=== PATIENT | male | born 1965 | race Caucasian/White ===

== ENCOUNTER 2016-12-23 12:09 | Day surgery (SDC) | payer BC ==
[2016-12-18 11:32] VITALS: BMI 31.2
[~2016-12-23 12:09] MED LIST: LACTATED RINGERS 1,000 ML IV SCH; LIDOCAINE 1% 20 ML VIAL (10MG/ML) FOR IV START INTRADERMA PRN
[2016-12-23 12:22] VITALS: TEMP 98.1
[2016-12-23] MEDS ORDERED: LACTATED RINGERS 1,000 ML IV ONE (12:32)
[2016-12-23] MEDS ORDERED: PROPOFOL 10 MG/ML 20 ML VIAL IV ONE (13:22)
--- NOTE | 2016-12-23 13:24 | P.GSHP ---
History of Present Illness H&P Date: 12/23/16 Chief Complaint: Screening colonoscopy This is a 51-year-old male referred from Dr. Hortencia abebe. Patient presents today for screening colonoscopy. Past Medical History Past Medical History: Hyperlipidemia, Hypertension Additional Past Medical History / Comment(s): chronic back pain, rt inguinal hernia, umbilical hernia, non alcoholic fatty liver History of Any Multi-Drug Resistant Organisms: None Reported Additional Past Surgical History / Comment(s): lymph node removed Past Anesthesia/Blood Transfusion Reactions: No Reported Reaction Past Psychological History: No Psychological Hx Reported Smoking Status: Never smoker Past Alcohol Use History: None Reported Past Drug Use History: None Reported - Past Family History Mother Family Medical History: No Reported History Medications and Allergies Home Medications Medication Instructions Recorded Confirmed Type Atorvastatin [Lipitor] 20 mg PO HS 12/18/16 12/23/16 History Lisinopril [Zestril] 10 mg PO DAILY 12/18/16 12/23/16 History Allergies Allergy/AdvReac Type Severity Reaction Status Date / Time No Known Allergies Allergy Verified 12/18/16 11:15 Surgical - Exam Vital Signs Temp Pulse Resp BP Pulse Ox 98.1 F 72 18 127/78 98 12/23/16 12:21 12/23/16 12:21 12/23/16 12:21 12/23/16 12:21 12/23/16 12:21 - General well developed, no distress - Eyes PERRL - ENT normal pinna - Neck no masses - Respiratory normal expansion - Cardiovascular Rhythm: regular - Abdomen Abdomen: soft, non tender Assessment and Plan Plan: We will perform screening colonoscopy
--- NOTE | 2016-12-23 13:39 | P.OP ---
Date of Procedure: 12/23/16 Preoperative Diagnosis: Screening colonoscopy Postoperative Diagnosis: Normal colonoscopy Procedure(s) Performed: Colonoscopy Anesthesia: MAC Surgeon: Usama Mcgee Pathology: none sent Condition: stable Disposition: PACU Description of Procedure: PROCEDURE: The patient was placed on the endoscopy table in the lateral position. Digital rectal examination was performed which revealed no abnormalities. The prostate was symmetrical without nodules. Flexible colonoscope was then placed in the patient's anus and passed throughout the entire colon. The ileocecal valve was visualized. The cecum, ascending, transverse, descending and sigmoid colon were normal. The rectum was normal as well. There were no masses, polyps or diverticula noted in the entire colon. SUMMARY OF FINDINGS: Normal colonoscopy.
[2016-12-23 13:47] VITALS: RESP 16
[2016-12-23 14:22] VITALS: BP 103/76; PULSE 64
== END 2016-12-23 14:40 | disposition home or self-care (01) ==
LOC: ORWHC2ENDO 12:09
PROVIDERS: ATTEND Surgery
DX: Z12.11 Encounter for screening for malignant neoplasm of colon (principal); E78.5 Hyperlipidemia, unspecified; I10 Essential (primary) hypertension; Z79.899 Other long term (current) drug therapy
CPT/HCPCS: J2704; G0121; 45378

== ENCOUNTER 2017-01-06 06:25 | Day surgery (SDC) | payer BC ==
[2017-01-04 15:23] VITALS: BMI 30.8
[~2017-01-06 06:25] MED LIST changes: +DEXAMETHASONE SOD PHOSPHATE 10 MG/ML 1 ML VIAL IV ONE; +HEPARIN SODIUM,PORCINE 5,000 UNIT/ML 1 ML VIAL SQ ONE; +HYDROmorphone 1 MG/ML 1 ML SYRINGE IVP PRN; -LACTATED RINGERS 1,000 ML IV SCH; -LIDOCAINE 1% 20 ML VIAL (10MG/ML) FOR IV START INTRADERMA PRN; +MIDAZOLAM 2 MG/2 ML VIAL IV PRN; +ONDANSETRON 4 MG/2 ML VIAL IVP ONE; +SCOPOLAMINE 1.5MG/72HR PATCH TRANSDERM ONE; +ceFAZolin 2 GM in SODIUM CHLORIDE 0.9% 100 ML IVPB ONE
[2017-01-06] MEDS: LACTATED RINGERS 1,000 ML IV SCH (06:54)
[2017-01-06] MEDS ORDERED: LIDOCAINE 1% 20 ML VIAL (10MG/ML) FOR IV START INTRADERMA ONE ×2 (06:55)
[2017-01-06] MEDS ORDERED: BUPIVACAIN-EPI 0.25%-1:200,000 30 ML VIAL SQ ONE (07:27)
--- NOTE | 2017-01-06 07:52 | P.GSHP ---
History of Present Illness H&P Date: 01/06/17 Chief Complaint: Umbilical hernia, right inguinal hernia This a 51-year-old male presents today for laparoscopic robotic-assisted repair of umbilical hernia and right inguinal hernia. Patient's had some complaints of right angle pain. - Constitutional Constitutional: Reports as per HPI Past Medical History Past Medical History: Hyperlipidemia, Hypertension Additional Past Medical History / Comment(s): chronic back pain, rt inguinal hernia, umbilical hernia, non alcoholic fatty liver History of Any Multi-Drug Resistant Organisms: None Reported Additional Past Surgical History / Comment(s): lymph node removed, colonoscopy Past Anesthesia/Blood Transfusion Reactions: No Reported Reaction Past Psychological History: No Psychological Hx Reported Smoking Status: Never smoker Past Alcohol Use History: None Reported Past Drug Use History: None Reported - Past Family History Mother Family Medical History: No Reported History Medications and Allergies Home Medications Medication Instructions Recorded Confirmed Type Atorvastatin [Lipitor] 20 mg PO HS 12/18/16 01/06/17 History Lisinopril [Zestril] 10 mg PO DAILY 12/18/16 01/06/17 History Allergies Allergy/AdvReac Type Severity Reaction Status Date / Time No Known Allergies Allergy Verified 01/06/17 06:39 Surgical - Exam Vital Signs Temp Pulse Resp BP Pulse Ox 98.5 F 82 16 120/79 95 01/06/17 06:37 01/06/17 06:37 01/06/17 06:37 01/06/17 06:37 01/06/17 06:37 - General well developed, no distress - Eyes PERRL - ENT normal pinna - Neck no masses - Respiratory normal expansion - Cardiovascular Rhythm: regular - Abdomen Abdomen: soft, non tender Hernia: inguinal (Reducible right inguinal hernia), umbilical Assessment and Plan Plan: Umbilical hernia Right inguinal hernia We'll perform laparoscopic robotic-assisted repair
[2017-01-06] MEDS ORDERED: NEOSTIGMINE 1 MG/ML 10 ML VIAL ONE (08:01)
[2017-01-06] MEDS ORDERED: PROPOFOL 10 MG/ML 20 ML VIAL IV ONE (08:01)
[2017-01-06] MEDS ORDERED: HYDROmorphone (PF) 1 MG/ML ONE (08:01)
[2017-01-06] MEDS ORDERED: ePHEDrine 50 MG/ML 1 ML AMP ONE (08:01)
[2017-01-06] MEDS ORDERED: SUCCINYLCHOLINE CHLORIDE 100 MG/5 ML SYR IV ONE (08:01)
[2017-01-06] MEDS ORDERED: ROCURONIUM BROMIDE 10 MG/ML 10 ML VIAL IV ONE (08:01)
[2017-01-06] MEDS ORDERED: LIDOCAINE 1% INJ 10MG/ML (20 ML MDV) ONE (08:01)
[2017-01-06] MEDS ORDERED: KETOROLAC 30 MG/ML 1 ML VIAL ONE (08:01)
[2017-01-06] MEDS ORDERED: fentaNYL (PF) 50 MCG/ML 2 ML AMP ONE (08:01)
[2017-01-06] MEDS ORDERED: MIDAZOLAM 2 MG/2 ML VIAL ONE (08:01)
[2017-01-06] MEDS ORDERED: GLYCOPYRROLATE 0.2 MG/ML 2 ML VIAL ONE (08:01)
--- NOTE | 2017-01-06 09:05 | P.OP ---
Date of Procedure: 01/06/17 Preoperative Diagnosis: Right internal hernia Incarcerated umbilical hernia Postoperative Diagnosis: Right inguinal hernia Incarcerated umbilical hernia Procedure(s) Performed: Laparoscopic robotic-assisted repair of right inguinal hernia and incarcerated umbilical hernia Anesthesia: EDWINA Surgeon: Usama Mcgee Estimated Blood Loss (ml): 5 Pathology: other (Incarcerated umbilical fat) Condition: stable Disposition: PACU Description of Procedure: The patient's placed on the operating table in the supine position. The patient received general anesthesia. The patient's abdomen was prepped and draped in usual sterile fashion. The skin was anesthetized 1% local Xylocaine at the incision sites. Using an 11 blade a skin incision was made at the umbilicus. The fascia was grasped with a Real and then the peritoneal cavity was entered with the Veress needle. Position of the Veress needle was confirmed with a positive drop test. After adequate insufflation a 5 mm trocar was placed into the peritoneal cavity. The Laparoscope was placed the peritoneal cavity. And a robotic 8 mm trocar was placed in the right lateral position and then another 8 mm robotic trochars placed in the left lateral position. The original 5 mm trocar was exchanged for a 12 mm trocar. The patient was placed in reverse Trendelenburg and then the patient was docked to the robot. Next the peritoneum over top of the hernia was incised and then using blunt and sharp dissection and electrocautery the hernia sac was dissected free from the floor of the inguinal canal. The hernia sac was completely reduced into the peritoneal cavity. And then using the Pro tube depatcher mesh the hernia was repaired. The peritoneum was then sutured with 20V lock suture. The patient was then undocked the robot. The needle was withdrawn from the peritoneal cavity. The umbilical umbilical site was closed with 0 Ethibond suture. There was incarcerated fat in the umbilical hernia which was removed. The skin was closed interrupted 3-0 Monocryl suture. Dermabond dressing was applied. Patient was sent to recovery in stable condition.
[2017-01-06 09:24] VITALS: TEMP 97.2
[2017-01-06] MEDS ORDERED: HYDROcodone/APAP 7.5-325MG 1 EACH TAB PO ONE (10:30)
[2017-01-06 10:45] VITALS: RESP 18
[2017-01-06 11:19] VITALS: BP 125/81; PULSE 82
== END 2017-01-06 11:58 | disposition home or self-care (01) ==
LOC: OR 06:25
PROVIDERS: ATTEND Surgery
DX: K42.0 Umbilical hernia with obstruction, without gangrene (principal); K40.30 Unilateral inguinal hernia, with obstruction, without gangrene, not specified as recurrent; E78.5 Hyperlipidemia, unspecified; G89.29 Other chronic pain; I10 Essential (primary) hypertension; K76.0 Fatty (change of) liver, not elsewhere classified; Z79.899 Other long term (current) drug therapy
CPT/HCPCS: 88305; 88302; 49653; 49650; C1781; J2250; J1644; J1100; J2710; J0690; J2405; J2001; J3010; J1885; J1170; J0330; J2704

== ENCOUNTER → 2018-07-08 | Outpatient (CLI) | payer BC ==
--- NOTE | 2018-07-10 09:43 | MR ---
MRI CERVICAL SPINE: CLINICAL HISTORY: Radiculopathy left upper extremity and cervicalgia per order. Headaches with neck p ain and stiffness for many years causing pain or weakness into left arm per patient. TECHNIQUE: Multiplanar, multisequence imaging of the cervical spine is performed without IV contrast. COMPARISON: None. FINDINGS: Sagittal images of the cervical spine show the craniocervical junction to appear within nor mal limits. The cervical and upper thoracic spinal cord is normal in course, caliber, and signal. V ertebral alignment is anatomic. The vertebral body heights are normal. There is mild disc space heath rowing C4-C5 and C5-C6 levels. No large posterior disc herniations are seen on sagittal images. The b one marrow signal intensity is within normal limits. Axial images show C2-C3 level to appear within normal limits. Axial images at C3-C4 level show right greater than left uncovertebral facet degenerative changes. Th ere is right paracentral/foraminal spur disc complex minimally effacing anterolateral thecal sac. The re is asymmetric increased moderate right-sided neural foraminal narrowing. Mild left-sided neural fo raminal narrowing is noted. Axial images at C4-C5 level show uncovertebral facet degenerative changes bilaterally with mild bilat eral neural foraminal narrowing. Axial images at C5-C6 level show broad-based central disc protrusion mildly effacing anterior thecal sac and causing mild right greater than left bilateral neural foraminal narrowing. Axial images at C6-C7 level shows central disc protrusion mildly effacing anterior thecal sac, bilate ral neural foramina are patent. Axial images at C7-T1 level are felt within normal limits. IMPRESSION: Some multilevel degenerative changes in the cervical spine as detailed above.
== END | disposition home or self-care (01) ==
LOC: RADMRIMAIN 16:58
PROVIDERS: ATTEND Family Medicine
DX: M47.22 Other spondylosis with radiculopathy, cervical region (principal)
CPT/HCPCS: 72141

== ENCOUNTER → 2019-01-03 | Outpatient (CLI) | payer BC ==
--- NOTE | 2019-02-14 23:02 | EM ---
EVENT MONITOR AGE:: 53 SEX:: Male INDICATIONS:: The patient was monitored for 30 days. The baseline rhythm appeared to be sinus mechanism. During the time of monitoring, the patient did have multiple episodes of sinus tachycardia. The patient also did have multiple episodes of paroxysmal atrial tachycardia. Also, the patient did have 1 episode of nonsustained ventricular tachycardia of 7 beats. Beside that, there was no evidence of any advanced AV block. There is no evidence of sinus pause or sinus arrest seen. CONCLUSION: 1. This is a 30 day event monitor. 2. The baseline rhythm is a sinus mechanism. 3. The patient did have multiple episodes of paroxysmal atrial tachycardia. 4. The patient did have multiple episodes of sinus tachycardia. 5. The patient did have 1 episode of ventricular tachycardia of 7 beats which is nonsustained. MMODL / IJN: [id number] /
== END | disposition home or self-care (01) ==
LOC: RADECHMAIN 11:44
PROVIDERS: ATTEND Family Medicine
DX: I47.2 Ventricular tachycardia (principal); I47.1 Supraventricular tachycardia
CPT/HCPCS: 93270

== ENCOUNTER → 2019-03-27 | Day surgery (SDC) | payer BC ==
[2019-03-23 11:06] VITALS: BMI 30.8
[~2019-03-27] MED LIST changes: -DEXAMETHASONE SOD PHOSPHATE 10 MG/ML 1 ML VIAL IV ONE; -HEPARIN SODIUM,PORCINE 5,000 UNIT/ML 1 ML VIAL SQ ONE; -HYDROmorphone 1 MG/ML 1 ML SYRINGE IVP PRN; -MIDAZOLAM 2 MG/2 ML VIAL IV PRN; -ONDANSETRON 4 MG/2 ML VIAL IVP ONE; -SCOPOLAMINE 1.5MG/72HR PATCH TRANSDERM ONE; +SODIUM CHLORIDE 0.9% 1,000 ML IV SCH; -ceFAZolin 2 GM in SODIUM CHLORIDE 0.9% 100 ML IVPB ONE
[2019-03-27 08:16] VITALS: BP 141/77; PULSE 59; RESP 18; TEMP 98
--- NOTE | 2019-03-27 11:27 | P.PCN ---
Preoperative Diagnosis: Diagnosis Syncope Twelve-lead ECG Sinus rhythm OK interval at the upper limits of normal at 200 ms narrow QRS [address] elevation inferior lateral consistent with early repolarization Tilt table test per protocol Baseline blood pressure 132/76. His mercury, pulse rate in the 50s Patient was tilted upright at an angle of 70 per protocol No significant change in heart her blood pressure placed upon noninvasive Blood pressure readings, ClearSite He is laid supine at the end of the procedure Patient completely asymptomatic Impression Normal heart rate and blood pressure response to upright tilting Normal 20 to ECG
== END ==
LOC: CATHEP 07:46
PROVIDERS: ATTEND Internal Medicine Clinical Cardiac Electrophysiology
DX: R55 Syncope and collapse (principal); I10 Essential (primary) hypertension; E78.5 Hyperlipidemia, unspecified; Z79.899 Other long term (current) drug therapy
CPT/HCPCS: 93660

== ENCOUNTER 2019-03-30 07:37 | Day surgery (SDC) | payer BC ==
[2019-03-23 11:56] VITALS: BMI 30.8
[~2019-03-30 07:37] MED LIST changes: +LACTATED RINGERS 1,000 ML IV SCH; +LIDOCAINE 1% 20 ML VIAL (10MG/ML) FOR IV START INTRADERMA PRN; -SODIUM CHLORIDE 0.9% 1,000 ML IV SCH
[2019-03-30 08:00] VITALS: TEMP 98
--- NOTE | 2019-03-30 08:34 | P.GSHP ---
History of Present Illness H&P Date: 03/30/19 Chief Complaint: GERD This a 54-year-old male who presents today for EGD. He's had issues with GERD and dysphagia. Past Medical History Past Medical History: GERD/Reflux, Hyperlipidemia, Hypertension, Osteoarthritis (OA), Syncope Additional Past Medical History / Comment(s): chronic back pain, non alcoholic fatty liver, sporadic episodes of passing out since age of 13 per pt., recent problems w/heartburn History of Any Multi-Drug Resistant Organisms: None Reported Past Surgical History: Hernia Repair Additional Past Surgical History / Comment(s): lymph node removed, colonoscopy, ventral hernia repaired Past Anesthesia/Blood Transfusion Reactions: No Reported Reaction Smoking Status: Never smoker - Past Family History Mother Family Medical History: No Reported History Medications and Allergies Home Medications Medication Instructions Recorded Confirmed Type Atorvastatin [Lipitor] 20 mg PO HS 12/18/16 03/27/19 History Lisinopril [Zestril] 10 mg PO DAILY 12/18/16 03/27/19 History Ibuprofen [Motrin Ib] 200 - 400 mg PO Q6H PRN 03/23/19 03/30/19 History Loratadine [Claritin] 10 mg PO DAILY 03/23/19 03/27/19 History Pantoprazole Sodium [Protonix] 40 mg PO DAILY 03/23/19 03/27/19 History Sertraline [Zoloft] 50 mg PO DAILY 03/23/19 03/27/19 History Allergies Allergy/AdvReac Type Severity Reaction Status Date / Time No Known Allergies Allergy Verified 03/27/19 08:05 Surgical - Exam Vital Signs Temp Pulse Resp BP Pulse Ox 98.0 F 58 L 18 107/76 95 03/30/19 07:58 03/30/19 07:58 03/30/19 07:58 03/30/19 07:58 03/30/19 07:58 - General well developed, well nourished, no distress - Eyes PERRL - ENT normal pinna - Neck no masses - Respiratory normal expansion - Cardiovascular Rhythm: regular - Abdomen Abdomen: soft, non tender Assessment and Plan Assessment: GERD, dysphagia. We'll perform EGD
[2019-03-30] MEDS ORDERED: LIDOCAINE 1% INJ 10MG/ML (20 ML MDV) ONE (08:43)
[2019-03-30] MEDS ORDERED: PROPOFOL 10 MG/ML 20 ML VIAL IV ONE (08:43)
--- NOTE | 2019-03-30 08:57 | P.OP ---
Date of Procedure: 03/30/19 Preoperative Diagnosis: GERD Postoperative Diagnosis: Antral gastritis Small hiatal hernia Esophagitis Procedure(s) Performed: EGD Anesthesia: MAC Surgeon: Usama Mcgee Pathology: other (Antrum, esophagus) Condition: stable Disposition: PACU Description of Procedure: The patient's placed on the endoscopy table in the lateral position. He received IV sedation. The gastroscope placed oropharynx passed in the esophagus into the stomach. Scope was then placed through the pylorus. The first and se cond portion of the duodenum appeared normal. Scope was then brought back the antrum this above inflamed. A biopsies performed. The scope was then retroflexed and the remainder of the stomach appeared normal. The patient had a small hiatal hernia. The GE junction was at [id number] cm. The distal esophagus appeared mildly inflamed. A biopsies performed. There is evidence of a inflammatory ring. The proximal esophagus appeared normal. The scope was withdrawn for patient.
[2019-03-30 09:06] VITALS: RESP 16
[2019-03-30 09:23] VITALS: BP 111/74; PULSE 59
== END 2019-03-30 09:33 | disposition home or self-care (01) ==
LOC: ORWHC2ENDO 07:37
PROVIDERS: ATTEND Surgery
DX: K21.0 Gastro-esophageal reflux disease with esophagitis (principal); K29.70 Gastritis, unspecified, without bleeding; K44.9 Diaphragmatic hernia without obstruction or gangrene; M19.90 Unspecified osteoarthritis, unspecified site; R13.10 Dysphagia, unspecified; E78.5 Hyperlipidemia, unspecified; G89.29 Other chronic pain; I10 Essential (primary) hypertension; K76.0 Fatty (change of) liver, not elsewhere classified; Z79.899 Other long term (current) drug therapy
CPT/HCPCS: 88305; 43239; J2001; J2704

== ENCOUNTER 2021-01-21 09:23 | Day surgery (SDC) | payer BC ==
[2021-01-20 12:10] VITALS: BMI 33.0
[~2021-01-21 09:23] MED LIST changes: -LIDOCAINE 1% 20 ML VIAL (10MG/ML) FOR IV START INTRADERMA PRN
[2021-01-21 10:41] VITALS: TEMP 98.2
[2021-01-21] MEDS ORDERED: LIDOCAINE 1% (10MG/ML) FOR IV START INTRADERMA ONE (10:53)
[2021-01-21] MEDS ORDERED: PROPOFOL 10 MG/ML 20 ML VIAL IV ONE (11:28)
[2021-01-21] MEDS ORDERED: LIDOCAINE 1% INJ 10MG/ML (20 ML MDV) ONE (11:28)
--- NOTE | 2021-01-21 11:47 | P.PCN ---
Date of Procedure: 01/21/21 Description of Procedure: BRIEF HISTORY: Patient is a 55-year-old male seen in the clinic reporting issues of globus and heartburn, he presents for outpatient EGD for evaluation of GERD. The patient previously said EGD and 2019 with findings of small hiatal hernia and biopsies consistent with reflux esophagitis. He has been started on Protonix therapy with some improvement in his symptoms. PROCEDURE PERFORMED: Esophagogastroduodenoscopy with biopsy. PREOPERATIVE DIAGNOSIS: [GERD with esophagitis. ESTIMATED BLOOD LOSS: Minimal. IV sedation per anesthesia. PROCEDURE: After informed consent was obtained, the patient was brought into the endoscopy unit. IV sedation was administered by Anesthesia under continuous monitoring. Initially the Olympus GIF-190 video endoscope was inserted into the mouth. Esophagus intubated without any difficulty. It was gradually advanced into the s tomach and duodenum and carefully examined. The bulb and the second part of the duodenum appeared normal, with biopsies taken. The scope at this time was withdrawn to the stomach, adequately insufflated with air, and upon careful examination, mucosa of the antrum, body, cardia and the fundus appeared normal, except for some mild scattered erythema in the antrum and body suggestive of mild gastritis biopsy was taken. The scope was then withdrawn into the esophagus. The GE junction was located at 40 cm from the incisors, with a small 1 cm hiatal hernia. The esophagus appeared normal except for a patchy area in the midesophagus 25 cm from the incisors consistent with LA grade a esophagitis which was biopsied. The lower esophagus was also biopsied. The esophagus appeared normal. There were no erosions or ulcerations seen and the patient tolerated the procedure well. IMPRESSION: 1. LA grade a esophagitis of the midesophagus . 2. Mild gastritis. 3. Biopsies of the duodenum, antrum and body, lower esophagus and mid esophagus.. RECOMMENDATIONS: The findings of this examination were discussed with the patient and his family. Okay to resume diet. Okay to resume medications. Continue Protonix therapy for now. Await pathology from biopsies. Follow up with GI clinic as scheduled.
[2021-01-21 12:07] VITALS: BP 99/59; PULSE 76; RESP 20
== END 2021-01-21 12:17 | disposition home or self-care (01) ==
LOC: ORWHC2ENDO 09:23
PROVIDERS: ATTEND Internal Medicine
DX: K21.00 Gastro-esophageal reflux disease with esophagitis, without bleeding (principal); K29.50 Unspecified chronic gastritis without bleeding; K44.9 Diaphragmatic hernia without obstruction or gangrene; E78.5 Hyperlipidemia, unspecified; F32.9 Major depressive disorder, single episode, unspecified; G47.33 Obstructive sleep apnea (adult) (pediatric); Z79.899 Other long term (current) drug therapy
CPT/HCPCS: 88305; 43239; J2001; J2704

== ENCOUNTER → 2021-02-04 | Outpatient (CLI) | payer BC ==
[2021-02-04 19:32] LABS: HGB 13.9 g/dL (13.0-17.0); MCH 30.2 pg (27.0-32.0); MCHC 32.3 g/dL (32.0-37.0); MCV 93.5 fL (80.0-97.0); Mean Platelet Volume 9.6 fL (9.5-12.2); Platelet Count 277 X 10*3/uL (140-440); WBC 5.51 X 10*3/uL (4.50-10.00)
[2021-02-04 23:38] LABS: Hemoglobin A1C 5.9 % (4.0-6.0)
[2021-02-05 00:25] LABS: African American GFR (CKD) 111.8 (60.0-200.0); Albumin 4.4 g/dL (3.80-4.90); Albumin/Globulin Ratio 1.76 (1.60-3.17); Anion Gap 13.4 mmol/L (4.00-12.00); BUN/Creat Ratio 12.22 Ratio (12.00-20.00); Calcium 9.3 mg/dL (8.7-10.3); Carbon Dioxide 21.6 mmol/L (21.6-31.8); Chol/HDL Ratio 8.08; Globulin 2.5 g/dL (1.6-3.3); LDL Cholesterol,Calculated 216.2 mg/dL (0.0-131.0); Non-African American GFR(CKD) 96.5 (60.0-200.0); Potassium 4.5 mmol/L (3.5-5.5); Prostate Specific Antigen 0.9 ng/mL (0.0-3.5); Total Bilirubin 0.3 mg/dL (0.2-1.2); Total Protein 6.9 g/dL (6.2-8.2); VLDL Calculation 38.8 mg/dL (5.00-40.00)
== END | disposition home or self-care (01) ==
LOC: LABWHC1 11:33
PROVIDERS: ATTEND Physician Assistant
DX: Z12.5 Encounter for screening for malignant neoplasm of prostate (principal); I10 Essential (primary) hypertension; E78.5 Hyperlipidemia, unspecified; R73.02 Impaired glucose tolerance (oral)
CPT/HCPCS: 36415; 80053; 80061; 83036; 84153; 84443; 85027

== ENCOUNTER 2023-07-26 08:30 | Emergency (ER) | payer BC ==
--- NOTE | 2023-07-26 09:06 | ED ---
Back Pain HPI - General Chief Complaint: Back Pain/Injury Stated Complaint: Back Pain Time Seen by Provider: 07/26/23 08:43 Source: patient, RN notes reviewed Mode of arrival: ambulatory Limitations: no limitations - History of Present Illness Initial Comments: 58-year-old male presents emergency Department with chief complaint of low back pain. He states she's been suffering with Dr. Hernandez years but worse over the last few days he states occasionally he has issues with that that he needs to be seen for. He denies any bowel, bladder incontinence or retention or saddle anesthesias. He states that he is in the process of moving and was lifting a large amount of things including heavy objects this weekend that increases symptoms. Patient has no difficulty walking or focal weakness. - Related Data Home Medications Medication Instructions Recorded Confirmed Atorvastatin [Lipitor] 20 mg PO HS 12/18/16 01/21/21 lisinopriL [Zestril] 10 mg PO DAILY 12/18/16 01/21/21 Ibuprofen [Motrin Ib] 200 - 400 mg PO Q6H PRN 03/23/19 01/20/21 Loratadine [Claritin] 10 mg PO DAILY PRN 03/23/19 01/21/21 Pantoprazole Sodium [Protonix] 40 mg PO DAILY 03/23/19 01/20/21 Sertraline [Zoloft] 50 mg PO DAILY 03/23/19 01/20/21 Previous Rx's Medication Instructions Recorded Cyclobenzaprine [Flexeril] 10 mg PO TID PRN #15 tab 07/26/23 predniSONE 50 mg PO DAILY #5 tab 07/26/23 Allergies Allergy/AdvReac Type Severity Reaction Status Date / Time No Known Allergies Allergy Verified 07/26/23 08:40 Review of Systems ROS Statement: Those systems with pertinent positive or pertinent negative responses have been documented in the HPI. ROS Other: All systems not noted in ROS Statement are negative. Past Medical History Past Medical History: GERD/Reflux, Hyperlipidemia, Hypertension, Osteoarthritis (OA), Syncope Additional Past Medical History / Comment(s): chronic back pain, non alcoholic fatty liver, sporadic episodes of passing out since age of 13 per pt., HIATAL HERNIA History of Any Multi-Drug Resistant Organisms: None Reported Past Surgical History: Hernia Repair Additional Past Surgical History / Comment(s): lymph node removed, colonoscopy, ventral hernia repaired Past Anesthesia/Blood Transfusion Reactions: Motion Sickness Past Psychological History: Anxiety, Depression Smoking Status: Never smoker Past Alcohol Use History: None Reported Past Drug Use History: None Reported - Past Family History Mother Family Medical History: No Reported History General Exam Limitations: no limitations General appearance: alert, in no apparent distress Head exam: Present: atraumatic, normocephalic, normal inspection Eye exam: Present: normal appearance, PERRL, EOMI. Absent: scleral icterus, conjunctival injection, periorbital swelling Respiratory exam: Present: normal lung sounds bilaterally. Absent: respiratory distress, wheezes, rales, rhonchi, stridor Cardiovascular Exam: Present: regular rate, normal rhythm, normal heart sounds. Absent: systolic murmur, diastolic murmur, rubs, gallop, clicks GI/Abdominal exam: Present: soft, normal bowel sounds. Absent: distended, tenderness, guarding, rebound, rigid Extremities exam: Present: other (Lower extremity strength equal bilaterally equal color equal pulses) Back exam: Present: full ROM ( pain with range of motion), tenderness, paraspinal tenderness. Absent: vertebral tenderness Neurological exam: Present: reflexes normal. Absent: motor sensory deficit Skin exam: Present: warm, dry, intact, normal color. Absent: rash Course Vital Signs 07/26/23 07/26/23 08:38 11:04 Temperature 98.2 F 98.1 F Pulse Rate 67 70 Respiratory 20 18 Rate Blood Pressure 137/84 132/86 O2 Sat by Pulse 99 99 Oximetry Medical Decision Making - Medical Decision Making Was pt. sent in by a medical professional or institution (, PA, [employer], urgent care, hospital, or fpc...) When possible be specific @ -No Did you speak to anyone other than the patient for history (EMS, parent, family, police, friend...)? What history was obtained from this source @ -No Did you review nursing and triage notes (agree or disagree)? Why? @ -I reviewed and agree with nursing and triage notes Were old charts reviewed (outside hosp., previous admission, EMS record, old EKG, old radiological studies, urgent care reports/EKG's, fpc records)? Report findings @ -No old charts were reviewed Differential Diagnosis (chest pain, altered mental status, abdominal pain women, abdominal pain men, vaginal bleeding, weakness, fever, dyspnea, syncope, headache, dizziness, GI bleed, back pain, seizure, CVA, palpatations, mental health, musculoskeletal)? @ -Differential Back Pain: Strain, zoster, cauda equina syndrome, epidural abscess, vertebral osteomyelitis, discitis, fracture, subluxation, disc herniation, DJD, spinal stenosis, dissection, AAA, pancreatitis, peptic ulcer disease, pyelonephritis, kidney stone, this is not meant to be an all-inclusive list.ble EKG interpreted by me (3pts min.). @ -None X-rays interpreted by me (1pt min.). @ -X-ray shows severe degenerative changes L5-S1 CT interpreted by me (1pt min.). @ -None done U/S interpreted by me (1pt. min.). @ -None done What testing was considered but not performed or refused? (CT, X-rays, U/S, labs)? Why? @ -None What meds were considered but not given or refused? Why? @ -None Did you discuss the management of the patient with other professionals (professionals i.e. , PA, [employer], lab, RT, psych nurse, social science professor, heel molder, teacher, unclaimed property officer, behavioral health case manager)? Give summary @ -No Was smoking cessation discussed for >3mins.? @ -No Was critical care preformed (if so, how long)? @ -No Were there social determinants of health that impacted care today? How? (Homelessness, low income, unemployed, alcoholism, drug addiction, transportation, low edu. Level, literacy, decrease access to med. care, penitentiary, rehab)? @ -No Was there de-escalation of care discussed even if they declined (Discuss DNR or withdrawal of care, Hospice)? DNR status @ -No What co-morbidities impacted this encounter? (DM, HTN, Smoking, COPD, CAD, Cancer, CVA, ARF, Chemo, Hep., AIDS, mental health diagnosis, sleep apnea, morbid obesity)? @ -None Was patient admitted / discharged? Hospital course, mention meds given and route, prescriptions, significant lab abnormalities, going to OR and other pertinent info. @ -Discharge x-rays show degenerative changes patient has no red flag symptoms. Patient discharged in stable condition patient advised follow-up for MRI. Undiagnosed new problem with uncertain prognosis? @ -No Drug Therapy requiring intensive monitoring for toxicity (Heparin, Nitro, Insulin, Cardizem)? @ -No Were any procedures done? @ -No Diagnosis/symptom? @ -Lumbar degenerative changes, lumbar strain Acute, or Chronic, or Acute on Chronic? @ -Acute Uncomplicated (without systemic symptoms) or Complicated (systemic symptoms)? @ -Uncomplicated Side effects of treatment? @ -No Exacerbation, Progression, or Severe Exacerbation? @ -No Poses a threat to life or bodily function? How? (Chest pain, [place], [place], pneumonia, PE, COPD, DKA, ARF, appy, cholecystitis, CVA, Diverticulitis, Homicidal, Suicidal, threat to staff... and all critical care pts) @ -No Disposition Clinical Impression: Strain of lumbar region, Degeneration of intervertebral disc Disposition: HOME SELF-CARE Condition: Stable Instructions (If sedation given, give patient instructions): Acute Low Back Pain (ED) Additional Instructions: Please return to the Emergency Department if symptoms worsen or any other concerns. Prescriptions: Cyclobenzaprine [Flexeril] 10 mg PO TID PRN #15 tab PRN Reason: Muscle Spasm predniSONE 50 mg PO DAILY #5 tab Is patient prescribed a controlled substance at d/c from ED?: No Referrals: Catalina Zuñiga DO [Primary Care Provider] - 1-2 days Brandon Lara DO [Doctor of Osteopathic Medicine] - 1-2 days Time of Disposition: 10:15
--- NOTE | 2023-07-26 09:36 | XR ---
EXAM TYPE: LUMBAR SPINE X RAY SERIES COMPARISON: NONE HISTORY: Pain TECHNIQUE: 3 views are submitted. FINDINGS: Alignment is anatomic. The pedicles are intact. The transverse processes are intact. There is olivier re degenerative disc disease with facet throughout the L5-S1 atherosclerotic change aorta. Hypertroph ic spurring lower thoracic spine. IMPRESSION: 1. Severe degenerative disc disease, facet arthropathy L5-S1 with suspected foraminal encroachment. R ecommend MRI.
[2023-07-26] MEDS ORDERED: ACET/COD 300 MG/30 MG STARTER PACK 6 TAB BTL PO STA (10:14)
[2023-07-26 11:29] VITALS: BP 132/86; PULSE 70; RESP 18; TEMP 98.1
== END 2023-07-26 11:06 | disposition home or self-care (01) ==
LOC: EC 08:30
DX: S39.012A Strain of muscle, fascia and tendon of lower back, initial encounter (principal); M51.36 Other intervertebral disc degeneration, lumbar region; K21.9 Gastro-esophageal reflux disease without esophagitis; E78.5 Hyperlipidemia, unspecified; I10 Essential (primary) hypertension; M19.90 Unspecified osteoarthritis, unspecified site; F41.9 Anxiety disorder, unspecified; F32.A Depression, unspecified; Z79.1 Long term (current) use of non-steroidal anti-inflammatories (NSAID); Z79.899 Other long term (current) drug therapy; X50.0XXA Overexertion from strenuous movement or load, initial encounter
CPT/HCPCS: 72100; 99283

== ENCOUNTER → 2023-08-04 | Outpatient (CLI) | payer BC ==
--- NOTE | 2023-08-04 14:51 | MR ---
EXAMINATION TYPE: MR lumbar spine wo con DATE OF EXAM: 08/04/2023 2:35 PM CLINICAL INDICATION:Male, 58 years old with history of M47.816 SPONDYLOSIS W/O MYELOPATHY; PHH, Low b ack pain, leg weakness COMPARISON: 06/07/2013 TECHNIQUE: Multi planar, multi sequence imaging was performed utilizing: T1-weighted, T2-weighted, a nd turbo inversion recovery imaging of the lumbar spine. IV Contrast: cc . (None if empty) FINDINGS: Alignment: The lumbar vertebral bodies have preserved heights and alignment. Cord: The conus medullaris and the distal spinal cord appear unremarkable with regards to their signa l intensity and morphology. Bones/Discs: Multilevel degeneration changes of mild osteophyte formation. L3 and S1 vertebral body h igh T1 signal probable hemangiomas. Diffuse signal within the osseous structures.. No abnormal bony e jong on inversion recovery sequences. T12-L1: No evidence of significant spinal canal stenosis or neural foraminal stenosis. L1-L2: No evidence of significant spinal canal stenosis or neural foraminal stenosis. L2-L3: No evidence of significant spinal canal stenosis or neural foraminal stenosis. L3-L4: No evidence of significant spinal canal stenosis or neural foraminal stenosis. L4-L5: No evidence of significant spinal canal stenosis or neural foraminal stenosis. L5-S1: The disc is rounded posterior morphology without significant spinal canal stenosis. Facet join t arthropathy with mild to moderate bilateral neural foraminal stenosis. No significant spinal canal or neural foraminal stenosis in the remainder of the visualized levels. Other findings: None. IMPRESSION: 1. No definitive evidence of disc herniation or significant spinal canal stenosis. 2. Mild disc degeneration with associated osteoarthritic changes, no significant neural foraminal st enosis. 3. Diffuse red marrow conversion can be seen in the setting of tobacco abuse, anemia, or myeloprolif erative disorder.
== END | disposition home or self-care (01) ==
LOC: RADMRIMAIN 13:58
PROVIDERS: ATTEND Family Medicine
DX: M47.816 Spondylosis without myelopathy or radiculopathy, lumbar region (principal); M51.36 Other intervertebral disc degeneration, lumbar region
CPT/HCPCS: 72148

== ENCOUNTER 2024-05-07 21:33 | Inpatient (IN) | payer BC, OTHER ==
--- NOTE | 2024-05-07 21:49 | ED ---
Seizure HPI - General Chief Complaint: Seizure Stated Complaint: Seizure, Vomiting Time Seen by Provider: 05/07/24 21:42 Source: patient, EMS, RN notes reviewed, old records reviewed Mode of arrival: EMS Limitations: no limitations - History of Present Illness Initial Comments: This is a 59-year-old male to the ER for evaluation of a significant syncopal event unresponsiveness that happened at home multiple times. Patient comes in to our emergency department for evaluation under significant distress diaphoresis generalized not feeling well. MD Complaint: possible seizure, loss of consciousness, shaking -: hour(s) Description of Episode: loss of consciousness, post-event confusion (No significant postevent confusion) -: second(s) Witnessed: yes - by bystander Place: home Possible Precipitating Event: none Associated Symptoms: confusion, loss of appetite, syncope (Symptoms seem to relate more to syncope but he did have shaking event), weakness Treatments Prior to Arrival: none - Related Data Home Medications Medication Instructions Recorded Confirmed Atorvastatin [Lipitor] 20 mg PO HS 12/18/16 01/21/21 lisinopriL [Zestril] 10 mg PO DAILY 12/18/16 01/21/21 Ibuprofen [Motrin Ib] 200 - 400 mg PO Q6H PRN 03/23/19 01/20/21 Loratadine [Claritin] 10 mg PO DAILY PRN 03/23/19 01/21/21 Pantoprazole Sodium [Protonix] 40 mg PO DAILY 03/23/19 01/20/21 Sertraline [Zoloft] 50 mg PO DAILY 03/23/19 01/20/21 Previous Rx's Medication Instructions Recorded Cyclobenzaprine [Flexeril] 10 mg PO TID PRN #15 tab 07/26/23 predniSONE 50 mg PO DAILY #5 tab 07/26/23 Allergies Allergy/AdvReac Type Severity Reaction Status Date / Time No Known Allergies Allergy Verified 07/26/23 08:40 Review of Systems ROS Statement: Those systems with pertinent positive or pertinent negative responses have been documented in the HPI. ROS Other: All systems not noted in ROS Statement are negative. Past Medical History Past Medical History: GERD/Reflux, Hyperlipidemia, Hypertension, Osteoarthritis (OA), Syncope Additional Past Medical History / Comment(s): chronic back pain, non alcoholic fatty liver, sporadic episodes of passing out since age of 13 per pt., HIATAL HERNIA History of Any Multi-Drug Resistant Organisms: None Reported Past Surgical History: Hernia Repair Additional Past Surgical History / Comment(s): lymph node removed, colonoscopy, ventral hernia repaired Past Anesthesia/Blood Transfusion Reactions: Motion Sickness Past Psychological History: Anxiety, Depression Smoking Status: Never smoker Past Alcohol Use History: None Reported Past Drug Use History: None Reported - Past Family History Mother Family Medical History: No Reported History General Exam - General Exam Comments Initial Comments: Complete diaphoretic with no focal neurological findings no seizure activity here in the ER Limitations: no limitations General appearance: alert, in no apparent distress, anxious, in distress Head exam: Present: atraumatic, normocephalic, normal inspection Eye exam: Present: normal appearance, PERRL, EOMI. Absent: scleral icterus, conjunctival injection, periorbital swelling ENT exam: Present: normal exam, mucous membranes moist Neck exam: Present: normal inspection. Absent: tenderness, meningismus, lymphadenopathy Respiratory exam: Present: normal lung sounds bilaterally. Absent: respiratory distress, wheezes, rales, rhonchi, stridor Cardiovascular Exam: Present: regular rate, normal rhythm, normal heart sounds. Absent: systolic murmur, diastolic murmur, rubs, gallop, clicks GI/Abdominal exam: Present: soft, normal bowel sounds. Absent: distended, tenderness, guarding, rebound, rigid Extremities exam: Present: normal inspection, full ROM, normal capillary refill. Absent: tenderness, pedal edema, joint swelling, calf tenderness Back exam: Present: normal inspection Neurological exam: Present: alert, oriented X3, CN II-XII intact Psychiatric exam: Present: normal affect, normal mood Skin exam: Present: warm, dry, intact, normal color. Absent: rash Course Vital Signs 05/07/24 05/07/24 05/07/24 21:35 22:00 22:43 Temperature 97.6 F Pulse Rate 65 62 61 Respiratory 18 20 18 Rate Blood Pressure 104/62 90/62 107/73 O2 Sat by Pulse 97 95 100 Oximetry 05/07/24 05/07/24 05/08/24 23:26 23:47 01:00 Temperature Pulse Rate 55 L 62 55 L Respiratory 16 16 15 Rate Blood Pressure 99/78 99/59 102/62 O2 Sat by Pulse 99 100 99 Oximetry - Reevaluation(s) Reevaluation #1: 08/25/24 22:02 Medical records reviewed Reevaluation #2: 05/07/24 22:02 Patient has bradycardic significant near syncopal event here in the ER with severe diaphoresis, patient is nauseous with vomiting Reevaluation #3: 05/08/24 01:58 Informed of results questions answered no recurrent syncope Reevaluation #4: Was pt. sent in by a medical professional or institution (, [facility], SHIP [facility]ER, urgent care, hospital, or fpc...) When possible be specific @ -no Did you speak to anyone other than the patient for history (EMS, parent, family, police, friend...)? What history was obtained from this source @ -no Did you review nursing and triage notes (agree or disagree)? Why? @ -agree Are old charts reviewed (outside hosp., previous admission, EMS record, old EKG, old radiological studies, urgent care reports/EKG's, fpc records)? Report findings @ -yes Differential Diagnosis (chest pain, altered mental status, abdominal pain women, abdominal pain men, vaginal bleeding, weakness, fever, dyspnea, syncope, headache, dizziness, GI bleed, back pain, seizure, CVA, palpatations, mental health, musculoskeletal)? @ -prior EKG interpreted by me (3pts min.). @ -yes X-rays interpreted by me (1pt min.). @ -yes negative for acute disease CT interpreted by me (1pt min.). @ -no U/S interpreted by me (1pt. min.). @ -no What testing was considered but not performed or refused? (CT, X-rays, U/S, labs)? Why? @ -none What meds were considered but not given or refused? Why? @ -none Did you discuss the management of the patient with other professionals (professionals i.e. [facility] Young, [facility], lab, RT, psych nurse, social sciences chair, resident manager, teacher, contracts officer, case preparer and liner)? Give summary @ -no Was smoking cessation discussed for >3mins.? @ -no Was critical care preformed (if so, how long)? @ -no Were there social determinants of health that impacted care today? How? ( Homelessness, low income, unemployed, alcoholism, drug addiction, transportation, low edu. Level, literacy, decrease access to med. care, long term, rehab)? @ -none Was there de-escalation of care discussed even if they declined (Discuss DNR or withdrawal of care, Hospice)? DNR status @ -no What co-morbidities impacted this encounter? (DM, HTN, Smoking, COPD, CAD, Cancer, CVA, ARF, Chemo, Hep., AIDS, mental health diagnosis, sleep apnea, morbid obesity)? @ -none Was patient admitted / discharged? Hospital course, mention meds given and route, prescriptions, significant lab abnormalities, going to OR and other pertinent info. @ - Undiagnosed new problem with uncertain prognosis? @ -no Drug Therapy requiring intensive monitoring for toxicity (Heparin, Nitro, Insulin, Cardizem)? @ -no Were any procedures done? @ -no Diagnosis/symptom? @ - Acute, or Chronic, or Acute on Chronic? @ -Acute Uncomplicated (without systemic symptoms) or Complicated (systemic symptoms)? @ -Complicated Side effects of treatment? @ -no Exacerbation, Progression, or Severe Exacerbation? @ -exacerbation Poses a threat to life or bodily function? How? (Chest pain, [place], [place], pneumonia, PE, COPD, DKA, ARF, appy, cholecystitis, CVA, Diverticulitis, Homicidal, Suicidal, threat to staff... and all critical care pts) @ -yes Reevaluation #5: Differential Syncope: Valvular disease, hypertrophic cardiomyopathy, pulmonary embolism, tamponade, tachycardia, bradycardia, [place], hypovolemia, hemorrhage, dissection, anemia, intracranial hemorrhage, seizure, hypoglycemia, carbon monoxide poisoning, this is not meant to be an all-inclusive list. - Consultations Consultation #1: Spoke with [facility] who agrees to admit this patient Medical Decision Making - Medical Decision Making 59 male to ER for evaluation patient presents today for evaluation regards to a syncopal event severe diaphoresis and bradycardia here in the ER remains diaphoretic throughout ER stay and will admit for syncope versus seizure - Lab Data Result diagrams: 05/07/24 22:04 05/07/24 22:04 Lab Results 05/07/24 05/07/24 05/07/24 Range/Units 21:50 22:04 22:04 WBC 7.9 (3.8-10.6) k/uL RBC 4.52 (4.30-5.90) m/uL Hgb 13.7 (13.0-17.5) gm/dL Hct 40.7 (39.0-53.0) % MCV 90.0 (80.0-100.0) fL MCH 30.3 (25.0-35.0) pg MCHC 33.6 (31.0-37.0) g/dL RDW 13.0 (11.5-15.5) % Plt Count 285 (150-450) k/uL MPV 6.9 Neutrophils % 49 % Lymphocytes % 42 % Monocytes % 5 % Eosinophils % 2 % Basophils % 1 % Neutrophils # 3.9 (1.3-7.7) k/uL Lymphocytes # 3.3 (1.0-4.8) k/uL Monocytes # 0.4 (0-1.0) k/uL Eosinophils # 0.1 (0-0.7) k/uL Basophils # 0.1 (0-0.2) k/uL PT 11.2 (10.0-12.5) sec INR 1.0 (<1.2) APTT 20.8 L (22.0-30.0) sec D-Dimer 0.21 (<0.60) mg/L FEU Sodium (137-145) mmol/L Potassium (3.5-5.1) mmol/L Chloride (98-107) mmol/L Carbon Dioxide (22-30) mmol/L Anion Gap mmol/L BUN (9-20) mg/dL Creatinine (0.66-1.25) mg/dL Est GFR (CKD-EPI)AfAm (>60 ml/min/1.73 sqM) Est GFR (CKD-EPI)NonAf (>60 ml/min/1.73 sqM) Glucose (74-99) mg/dL POC Glucose (mg/dL) 147 H (70-110) mg/dL POC Glu Offset Second Press Operator ID Emilia Flores Plasma Lactic Acid Danish (0.7-2.0) mmol/L Calcium (8.4-10.2) mg/dL Phosphorus (2.5-4.5) mg/dL Magnesium (1.6-2.3) mg/dL Total Bilirubin (0.2-1.3) mg/dL AST (17-59) U/L ALT (4-49) U/L Alkaline Phosphatase (38-126) U/L Ammonia (<30) umol/L Troponin I (0.000-0.034) ng/mL NT-Pro-B Natriuret Pep pg/mL Total Protein (6.3-8.2) g/dL Albumin (3.5-5.0) g/dL Lipase (23-300) U/L Serum Alcohol mg/dL 05/07/24 05/07/24 05/07/24 Range/Units 22:04 22:04 22:04 WBC (3.8-10.6) k/uL RBC (4.30-5.90) m/uL Hgb (13.0-17.5) gm/dL Hct (39.0-53.0) % MCV (80.0-100.0) fL MCH (25.0-35.0) pg MCHC (31.0-37.0) g/dL RDW (11.5-15.5) % Plt Count (150-450) k/uL MPV Neutrophils % % Lymphocytes % % Monocytes % % Eosinophils % % Basophils % % Neutrophils # (1.3-7.7) k/uL Lymphocytes # (1.0-4.8) k/uL Monocytes # (0-1.0) k/uL Eosinophils # (0-0.7) k/uL Basophils # (0-0.2) k/uL PT (10.0-12.5) sec INR (<1.2) APTT (22.0-30.0) sec D-Dimer (<0.60) mg/L FEU Sodium 138 (137-145) mmol/L Potassium 3.7 (3.5-5.1) mmol/L Chloride 108 H (98-107) mmol/L Carbon Dioxide 15 L (22-30) mmol/L Anion Gap 15 mmol/L BUN 14 (9-20) mg/dL Creatinine 0.99 (0.66-1.25) mg/dL Est GFR (CKD-EPI)AfAm >90 (>60 ml/min/1.73 sqM) Est GFR (CKD-EPI)NonAf 84 (>60 ml/min/1.73 sqM) Glucose 139 H (74-99) mg/dL POC Glucose (mg/dL) (70-110) mg/dL POC Glu Offset Second Press Operator ID Plasma Lactic Acid Danish 2.0 (0.7-2.0) mmol/L Calcium 9.6 (8.4-10.2) mg/dL Phosphorus 3.7 (2.5-4.5) mg/dL Magnesium 1.9 (1.6-2.3) mg/dL Total Bilirubin 0.5 (0.2-1.3) mg/dL AST 25 (17-59) U/L ALT 26 (4-49) U/L Alkaline Phosphatase 82 (38-126) U/L Ammonia 14 (<30) umol/L Troponin I <0.012 (0.000-0.034) ng/mL NT-Pro-B Natriuret Pep <20 pg/mL Total Protein 7.0 (6.3-8.2) g/dL Albumin 4.3 (3.5-5.0) g/dL Lipase 85 (23-300) U/L Serum Alcohol <10 mg/dL - EKG Data -: EKG Interpreted by Me (EKG is sinus 66 MT 232 QRS 111 QTc 456) - Radiology Data Radiology results: report reviewed (Brain is negative for acute disease), image reviewed Critical Care Time Critical Care Time: Yes Total Critical Care Time: 31 Disposition Clinical Impression: Syncope, Generalized seizure, Diaphoresis, Weakness, Bradycardia Disposition: ADMITTED IP TO THIS [facility] Condition: Serious Is patient prescribed a controlled substance at d/c from ED?: No Referrals: Abebe Hilton MD [Primary Care Provider] - 1-2 days Time of Disposition: 01:55
[2024-05-07 21:53] LABS: Glucose,Whole Blood 147 mg/dL (70-110)
[2024-05-07] MEDS: SODIUM CHLORIDE 0.9% 1,000 ML IV STA ×2 (22:03→23:27)
[2024-05-07] MEDS: ONDANSETRON 4 MG/2 ML VIAL IVP STA (22:03)
[2024-05-07 22:30] LABS: Basophils # (A) 0.1 k/uL (0-0.2); Basophils % (A) 1 %; Eosinophils # (A) 0.1 k/uL (0-0.7); Eosinophils % (A) 2 %; HCT 40.7 % (39.0-53.0); HGB 13.7 gm/dL (13.0-17.5); Lymphocytes # (A) 3.3 k/uL (1.0-4.8); Lymphocytes % (A) 42 %; MCH 30.3 pg (25.0-35.0); MCHC 33.6 g/dL (31.0-37.0); Mean Platelet Volume 6.9; Monocytes # (A) 0.4 k/uL (0-1.0); Monocytes % (A) 5 %; Neutrophils # (A) 3.9 k/uL (1.3-7.7); Neutrophils % (A) 49 %; Platelet Count 285 k/uL (150-450); RBC 4.52 m/uL (4.30-5.90); WBC 7.9 k/uL (3.8-10.6)
[2024-05-07 22:45] LABS: ALT 26 U/L (4-49); AST 25 U/L (17-59); African American GFR (CKD) >90 (>60 ml/min/1.73 sqM); Albumin 4.3 g/dL (3.5-5.0); Alcohol <10 mg/dL; Alkaline Phosphatase 82 U/L (38-126); Anion Gap 15 mmol/L; Blood Urea Nitrogen 14 mg/dL (9-20); Calcium 9.6 mg/dL (8.4-10.2); Carbon Dioxide 15 mmol/L (22-30); Chloride 108 mmol/L (98-107); Glucose 139 mg/dL (74-99); Lipase 85 U/L (23-300); Magnesium 1.9 mg/dL (1.6-2.3); Non-African American GFR(CKD) 84 (>60 ml/min/1.73 sqM); Phosphorus 3.7 mg/dL (2.5-4.5); Potassium 3.7 mmol/L (3.5-5.1); Sodium 138 mmol/L (137-145); Total Bilirubin 0.5 mg/dL (0.2-1.3)
[2024-05-07 22:49] LABS: NT-Pro-B-Type Natriuretic Pept <20 pg/mL; Prothrombin Time 11.2 sec (10.0-12.5)
[2024-05-07 22:53] LABS: Partial Thromboplastin Time 20.8 sec (22.0-30.0)
[2024-05-08] MEDS ORDERED: MORPHINE SULFATE 4 MG/ML SYRINGE IV PRN (01:50)
[2024-05-08] MEDS ORDERED: NALOXONE 0.4 MG/ML 1 ML VIAL IV PRN (01:50)
[2024-05-08] MEDS ORDERED: ONDANSETRON 4 MG/2 ML VIAL IVP PRN (01:50)
[2024-05-08] MEDS: SODIUM CHLORIDE 0.9% 1,000 ML IV SCH ×2 (03:13→18:20)
[2024-05-08] MEDS ORDERED: PANTOPRAZOLE 40 MG TABLET PO PRN (11:41)
--- NOTE | 2024-05-08 11:55 | P.HPIM ---
History of Present Illness H&P Date: 05/08/24 Chief Complaint: Syncope This is a obese 59-year-old gentleman with past medical history significant for hypertension, hyperlipidemia, anxiety, depression and multiple other medical issues presented to the ER with complaints of syncope. Denies chest pain, palpitations or shortness of breath. Reports prior history of concussion since ninth grade, syncope events since seventh grade, last event approximately 2 years ago. States syncope occur sporadically, not exertional, lasting approximately 20 to 30 minutes, usually with sitting or standing. Most recent occurrence was while he was walking his dog, became diaphoretic, disoriented- denies confusion. remembers events up to passing out, denies incontinence of urine or stool. 1 to 2 weeks ago reports a headache lasting 1 to 2 days without the other symptoms, resolved. Denies nausea vomiting or diarrhea. Denies blur red vision-states his eyes are chronically bad. Vague historian. Has not seen a sales clerk food in years; reports a normal echo years ago along with event monitor revealing tachycardia. Blood pressure soft, LINDA inhibitor is on hold, receiving IV fluid hydration. EKG reporting sinus rhythm first-degree AV block, troponins negative x 3. proBNP less than 20. Labs unremarkable. Serum alcohol less than 10. Brain CT completed, results pending. Review of Systems ROS Statement: Those systems with pertinent positive or pertinent negative responses have been documented in the HPI. ROS Other: All systems not noted in ROS Statement are negative. Past Medical History Past Medical History: GERD/Reflux, Hyperlipidemia, Hypertension, Osteoarthritis (OA), Syncope Additional Past Medical History / Comment(s): chronic back pain, non alcoholic fatty liver, sporadic episodes of passing out since age of 13 per pt., HIATAL HERNIA History of Any Multi-Drug Resistant Organisms: None Reported Past Surgical History: Hernia Repair Additional Past Surgical History / Comment(s): lymph node removed, colonoscopy, ventral hernia repaired Past Anesthesia/Blood Transfusion Reactions: Motion Sickness Past Psychological History: Anxiety, Depression Smoking Status: Never smoker Past Alcohol Use History: None Reported Past Drug Use History: None Reported - Past Family History Mother Family Medical History: No Reported History Medications and Allergies Home Medications and Allergies Comment(s): PHYSICAL EXAM: VITAL SIGNS: [As above] GENERAL: Obese, alert and oriented x 3, sitting up in bed, no acute distress HEENT: Normocephalic, conjunctivae normal. eyes normal. NECK: Supple, no JVD. No thyroid enlargement. No LNs CARDIOVASCULAR: S1, S2 regular. No murmur RESPIRATION: Unlabored, equal air entry, breath sounds diminished in the bases. No rhonchi or crackles. No bronchial breathing. ABDOMEN: Obese, soft, nondistended, nontender . No guarding. no masses palpable. No ascites, No hepatosplenomegaly.Bowel sounds heard. LEGS: No edema. no swelling NERVOUS SYSTEM: Cranial N 2-12 grossly normal. Moves all 4 limbs. No focal deficits. Strength and sensation grossly intact.. Skin: Warm and dry, no rash Home Medications Medication Instructions Recorded Confirmed Type Pantoprazole Sodium [Protonix] 40 mg PO DAILY PRN 03/23/19 05/08/24 History Sertraline [Zoloft] 50 mg PO DAILY 03/23/19 05/08/24 History Atorvastatin [Lipitor] 10 mg PO HS 05/08/24 05/08/24 History lisinopriL [Zestril] 20 mg PO DAILY 05/08/24 05/08/24 History Allergies Allergy/AdvReac Type Severity Reaction Status Date / Time No Known Allergies Allergy Verified 05/08/24 10:08 Physical Exam Vitals: Vital Signs Temp Pulse Pulse Resp BP BP Pulse Ox 05/08/24 07:51 98 05/08/24 07:36 97.6 F 67 16 110/69 95 05/08/24 02:00 97.5 F L 71 16 109/73 100 05/08/24 01:00 55 L 15 102/62 99 05/07/24 23:47 62 16 99/59 100 05/07/24 23:26 55 L 16 99/78 99 05/07/24 22:43 61 18 107/73 100 05/07/24 22:00 62 20 90/62 95 05/07/24 21:35 97.6 F 65 18 104/62 97 Intake and Output 05/07/24 05/08/24 05/08/24 22:59 06:59 14:59 Output Total 100 Balance -100 Output: Urine 100 Other: Weight 104.326 kg 104.326 kg Results CBC & Chem 7: 05/07/24 22:04 05/07/24 22:04 Labs: Abnormal Lab Results - Last 24 Hours (Table) 0805/07/24 05/07/24 Range/Units 21:50 22:04 22:04 APTT 20.8 L (22.0-30.0) sec Chloride 108 H (98-107) mmol/L Carbon Dioxide 15 L (22-30) mmol/L Glucose 139 H (74-99) mg/dL POC Glucose (mg/dL) 147 H (70-110) mg/dL Thrombosis Risk Factor Assmnt - Choose All That Apply Any of the Below Risk Factors Present?: Yes Each Factor Represents 1 point: Age 41-60 years, Obesity (BMI >25) Other Risk Factors: No Other congenital or acquired thrombophilia - If yes, enter type in comment: No Thrombosis Risk Factor Assessment Total Risk Factor Score: 2 Thrombosis Risk Factor Assessment Level: Low Risk Assessment and Plan Assessment: Syncope, etiology unclear, in a patient with history of syncope since seventh grade. Reports full event monitor years ago showing tachycardia. Hypertension Hyperlipidemia Anxiety, depression Morbid obesity, BMI 33 Gastroesophageal reflux disease OA Chronic back pain Hepatosteatosis Plan: Continue on current medication regimen, monitoring and symptomatic treatment. Brain CT completed, results pending. IV fluid hydration. LINDA inhib itor on hold secondary to soft blood pressures. echo ordered. Neurology and cardiology consults in place, recommendations pending. The impression and plan of care has been dictated as directed. : I performed a history and examination of this patient, discussed the same with the dictator. I agree with the dictator's note ,documented as a scribe. Any additional findings or plans will be noted.
[2024-05-08] MEDS: LIDOCAINE 1% INJ 10MG/ML (20 ML MDV) SQ ONE (12:25)
--- NOTE | 2024-05-08 13:29 | P.CNNES ---
History of Present Illness Consult date: 05/08/24 Requesting physician: Christopher Leach Reason for Consult: sz ?syncope History of Present Illness: This is a 59-year-old gentleman who presented emergency department because of a syncopal episode. Patient stated yesterday he went outside at night close to 9:30 PM and took his dog for a walk and then he felt his both hands were tingling and felt "disoriented". He was seeing black spots and felt he was about to pass out so he went back home and sat on the chair and was breathing was off and felt something was in his throat then fell and his hands and feet were numb and then he passed out for 2 minutes while on the chair. His passing out episode was witnessed by his and he stated that she notified him that both his hands were flexed close to 90 degrees on his chest and was taken then he was postictal confused for at least 30 to 40 minutes. He denies any tongue bite, urinary or bowel incontinence. He feels back to baseline. He denies any significant headache associate with it. He denies any arrhythmia prior to the episode. He stated that he had these episodes since grade 7 was his first epis ode then 5 years later he had 2 episode and is little most recent episode prior to this was about 5 6 years ago. He stated that he had extensive cardiac workup in the past which was negative. Denies evaluated by neurologist regarding this past. Denies any history of stroke. Denies any alcohol use or illicit drug use. Some of the work-up during this hospital visit consisted of: CBC with differential is unremarkable Chemistry panel is POC glucose is 147, Chloride is 108, carbon dioxide 15, and rest of chemistry panel is unremarkable. Ammonia levels 14 Plasma lactic acid 2.0 CT head is pending official report. I looked in the patient chart and there is no report. EKG is reported as sinus rhythm with first-degree AV block. Moderate intraventricular conduction delay ventricular rate 66 the QT/QTc is 443/456. Review of Systems The positive and negative as per HPI. Past Medical History Past Medical History: GERD/Reflux, Hyperlipidemia, Hypertension, Osteoarthritis (OA), Syncope Additional Past Medical History / Comment(s): chronic back pain, non alcoholic fatty liver, sporadic episodes of passing out since age of 13 per pt., HIATAL HERNIA History of Any Multi-Drug Resistant Organisms: None Reported Past Surgical History: Hernia Repair Additional Past Surgical History / Comment(s): lymph node removed, colonoscopy, ventral hernia repaired Past Anesthesia/Blood Transfusion Reactions: Motion Sickness Past Psychological History: Anxiety, Depression Smoking Status: Never smoker Past Alcohol Use History: None Reported Past Drug Use History: None Reported - Past Family History Mother Family Medical History: No Reported History Medications and Allergies Home Medications Medication Instructions Recorded Confirmed Type Pantoprazole Sodium [Protonix] 40 mg PO DAILY PRN 03/23/19 05/08/24 History Sertraline [Zoloft] 50 mg PO DAILY 03/23/19 05/08/24 History Atorvastatin [Lipitor] 10 mg PO HS 05/08/24 05/08/24 History lisinopriL [Zestril] 20 mg PO DAILY 05/08/24 05/08/24 History Allergies Allergy/AdvReac Type Severity Reaction Status Date / Time No Known Allergies Allergy Verified 05/08/24 10:08 Physical Examination - Vital Signs Vital Signs: Vital Signs Temp Pulse Pulse Resp BP BP Pulse Ox 05/08/24 07:51 98 05/08/24 07:36 97.6 F 67 16 110/69 95 05/08/24 02:00 97.5 F L 71 16 109/73 100 05/08/24 01:00 55 L 15 102/62 99 05/07/24 23:47 62 16 99/59 100 05/07/24 23:26 55 L 16 99/78 99 05/07/24 22:43 61 18 107/73 100 05/07/24 22:00 62 20 90/62 95 05/07/24 21:35 97.6 F 65 18 104/62 97 Intake and Output 05/07/24 05/08/24 05/08/24 22:59 06:59 14:59 Output Total 100 Balance -100 Output: Urine 100 Other: Weight 104.326 kg 104.326 kg GENERAL: The patient is lying in bed and is not in acute distress. NEUROLOGICAL: Higher mental function: The patient is awake, alert, oriented to self, place and time. Patient is following commands. No aphasia and no neglect. Cranial nerves: The pupils are round, equal and reactive to light and accommodation. Visual luna are full to confrontation throughout. Extraocular movement is intact no nystagmus is noted. Facial sensation is normal to touch throughout. The facial strength is normal throughout. Hearing is normal bilaterally to hand rub. Tongue is midline and moved [id number] without any difficulty. No dysarthria is noted. Shoulder shrug is normal bilaterally. Motor: The strength is 5 over 5 throughout. Normal tone and bulk. Cerebellum: Normal finger to nose heel to munguia bilaterally. Sensation: Sensation is normal to touch throughout. Reflexes (right/left): 2+ throughout. Plantars are downgoing bilaterally. Results - Laboratory Findings CBC and BMP: 05/07/24 22:04 05/07/24 22:04 Abnormal Lab Findings: Abnormal Labs 05/07/24 05/07/24 05/07/24 21:50 22:04 22:04 APTT 20.8 L Chloride 108 H Carbon Dioxide 15 L Glucose 139 H POC Glucose (mg/dL) 147 H Assessment and Plan Assessment: This is a 59-year-old gentleman who presents because of syncopal episode. He s tated last night he took his dog for a walk and then he noticed having tingling in both hands and felt disoriented that he was seeing black spots 1 back home sat on the chair and he passed out and he had pain of upper extremity episode lasted for 2 minutes with postictal confusion of 30 to 40 minutes. Been having close to similar symptoms since seventh grade and he had cardiac workup in the past which was unremarkable. Syncopal episode with upper extremity shaking with postictal confusion 30 to 40 minutes is highly concerning for seizures. Similar episodes in the past and had a cardiac workup which was unremarkable First degree AV block on EKG Underlying history of hypertension Hypercholesteremia Plan: I ordered a routine EEG and MRI of the brain Pending official report for CT of the head. I felt CT of the head is seems unremarkable for any acute or subacute process. Seizure precaution seizure pads Patient was in agreement of starting him on seizure medication and he excepted to be on Lamictal and I notified him about side effects of severe rash such as Gallardo-Carlos syndrome and if he does not have any significant rash to stop the medication immediately and to come to the hospital. Start him on Lamictal 25 mg daily and a slow titration and after 1 week to go up to 25 mg twice daily and after two week go up to 50mg qam and 25mg qhs and to keep going up on Lamictal 25mg each week until 100mg bid. Notify the patient per the [place] DMV because of seizures or syncopal episode to avoid driving for 6 months until no further episodes from the last event, avoid heights, but avoid swimming unassisted, avoid using heavy machinery Patient to follow-up with neurologist as an outpatient within 1 to 2 weeks Cardiology team is consulted and they placed a loop recorder today Will defer the rest of the medical management to primary team and other sp ecialist Thank you for the consultation Time with Patient: Greater than 30
--- NOTE | 2024-05-08 13:36 | P.PCN ---
Description of Procedure: Procedure: Insertion of Linq loop recorder Indication: Recurrent syncope CONSENT:I have discussed the risks, benefits and alternative therapies for the above-mentioned procedure. The patient has indicated understanding and acceptance of the risks and procedures discussed. PROCEDURE: Patient was brought to the catheterization lab in a fasting state. Patient was prepped and draped in the usual fashion. 1% lidocaine was used to anesthetize the area of the left third intercostal space. Using the loop recorder incision device, a small 0.5 cm incision was made in the left 3rd intercostal space. Next the Linq loop recorder was deployed in the 3rd intercostal space subcutaneously using the insertion tool. Thresholds were devika cked and were excellent at 0.21 V. Next the incision was closed using Dermabond. Steristrips were placed over the incision and the procedure was completed. The patient tolerated the procedure well. The patient was transported to the post cath holding area in stable condition. Linq loop recorder serial number: [id number]
--- NOTE | 2024-05-08 13:52 | P.CRDCN ---
History of Present Illness History of present illness: HISTORY OF PRESENT ILLNESS: This is a 59 year old male with a past medical history significant for hypertension and hyperlipidemia. 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 We have been asked to see the patient in consultation for syncope. Patient examined at the bedside. Patient states he was walking his dog when he began to feel like he was going to pass out so he came inside. He states that he sat down in his chair and began to get tingling in his fingers and a lump in his throat. He reports shortness of breath but no chest pain. He reports his symptoms lasted for about 20-25 minutes and then he lost consciousness. His family reports seizure like activity following that. He does report having episodes like his every couple years. Denies smoking, alcohol, or drug use. Reports BP at the time was low in the 80s. Reports HR was in the 30-50s at that time. He states his he art rate was low in the ER in the 30s when he was vomiting. DIAGNOSTICS: - EKG reveals sinus mechanism with no signs of acute ischemia - Laboratory data: WBC 7.9. Hemoglobin 13.7. Platelet count 285. D-dimer 0.21. Sodium 138. Potassium 3.7. BUN 14. Creatinine 0.99. Troponin negative x 3. BNP less than 20. Serum alcohol less than 20. - Current home cardiac medications include lisinopril 20 mg daily and atorvastatin 10 mg at night REVIEW OF SYSTEMS: At the time of my exam: CONSTITUTIONAL: Denies fever or chills. HEENT: Denies blurred vision, vision changes, or eye pain. Denies hemoptysis CARDIOVASCULAR: Denies chest pain. Denies orthopnea. Denies PND. Denies palpitations RESPIRATORY: Denies shortness of breath. GASTROINTESTINAL: Denies abdominal pain. Denies nausea or vomiting. HEMATOLOGIC: Denies bleeding disorders. GENITOURINARY: Denies any blood in urine. SKIN: Denies pruitis. Denies rash. PHYSICAL EXAM: VITAL SIGNS: Reviewed. GENERAL: Well-developed in no acute distress. HEENT: Head is normocephalic. Pupils are equal, round. Sclerae anicteric. Mucous membranes of the mouth are moist. Neck supple. No JVD or thyromegaly LUNGS: Respirations even and unlabored. Lungs essentially clear to auscultation bilaterally. HEART: Regular rate and rhythm. S1 and S2 heard. ABDOMEN: Soft. Nondistended. Nontender. EXTREMITIES: Normal range of motion. No clubbing or cyanosis. Peripheral pulses intact. No lower extremity edema NEUROLOGIC: Awake and alert. Oriented x 3. ASSESSMENT: Syncope, likely vasovagal syncope Reported bradycardia in ER, no telemetry tracings available in EMR/chart for review History of syncopal episodes in the past Hypertension Hyperlipidemia Obstructive sleep apnea PLAN: Obtain 2D echo to assess cardiac structure and function Resume Lipitor. Hold lisinopril as patient's blood pressures are on the lower side. Recommend outpatient stress testing Continue telemetry monitoring Patient to undergo Loop recorder insertion today with Dr. Soto Patient to follow up outpatient with Dr. Soto Nurse practitioner note has been reviewed by physician. Signing provider agrees with the documented findings, assessment, and plan of care documented by DAIRY GRAZER as a scribe. Past Medical History Past Medical History: GERD/Reflux, Hyperlipidemia, Hypertension, Osteoarthritis (OA), Syncope Additional Past Medical History / Comment(s): chronic back pain, non alcoholic fatty liver, sporadic episodes of passing out since age of 13 per pt., HIATAL HERNIA History of Any Multi-Drug Resistant Organisms: None Reported Past Surgical History: Hernia Repair Additional Past Surgical History / Comment(s): lymph node removed, colonoscopy, ventral hernia repaired Past Anesthesia/Blood Transfusion Reactions: Motion Sickness Past Psychological History: Anxiety, Depression Smoking Status: Never smoker Past Alcohol Use History: None Reported Past Drug Use History: None Reported - Past Family History Mother Family Medical History: No Reported History Medications and Allergies Home Medications Medication Instructions Recorded Confirmed Type Pantoprazole Sodium [Protonix] 40 mg PO DAILY PRN 03/23/19 05/08/24 History Sertraline [Zoloft] 50 mg PO DAILY 03/23/19 05/08/24 History Atorvastatin [Lipitor] 10 mg PO HS 05/08/24 05/08/24 History lisinopriL [Zestril] 20 mg PO DAILY 05/08/24 05/08/24 History Allergies Allergy/AdvReac Type Severity Reaction Status Date / Time No Known Allergies Allergy Verified 05/08/24 10:08 Physical Exam Vitals: Vital Signs Temp Pulse Pulse Resp BP BP Pulse Ox 05/08/24 07:51 98 05/08/24 07:36 97.6 F 67 16 110/69 95 05/08/24 02:00 97.5 F L 71 16 109/73 100 05/08/24 01:00 55 L 15 102/62 99 05/07/24 23:47 62 16 99/59 100 05/07/24 23:26 55 L 16 99/78 99 05/07/24 22:43 61 18 107/73 100 05/07/24 22:00 62 20 90/62 95 05/07/24 21:35 97.6 F 65 18 104/62 97 Intake and Output 05/07/24 05/08/24 05/08/24 22:59 06:59 14:59 Output Total 100 Balance -100 Output: Urine 100 Other: Weight 104.326 kg 104.326 kg Results 05/07/24 22:04 05/07/24 22:04 Cardiac Enzymes 05/07/24 05/07/24 05/08/24 Range/Units 22:04 22:04 03:09 AST 25 (17-59) U/L Troponin I <0.012 <0.012 (0.000-0.034) ng/mL 05/08/24 Range/Units 06:09 AST (17-59) U/L Troponin I <0.012 (0.000-0.034) ng/mL Coagulation 05/07/24 Range/Units 22:04 PT 11.2 (10.0-12.5) sec APTT 20.8 L (22.0-30.0) sec CBC 05/07/24 Range/Units 22:04 WBC 7.9 (3.8-10.6) k/uL RBC 4.52 (4.30-5.90) m/uL Hgb 13.7 (13.0-17.5) gm/dL Hct 40.7 (39.0-53.0) % Plt Count 285 (150-450) k/uL Comprehensive Metabolic Panel 05/07/24 Range/Units 22:04 Sodium 138 (137-145) mmol/L Potassium 3.7 (3.5-5.1) mmol/L Chloride 108 H (98-107) mmol/L Carbon Dioxide 15 L (22-30) mmol/L BUN 14 (9-20) mg/dL Creatinine 0.99 (0.66-1.25) mg/dL Glucose 139 H (74-99) mg/dL Calcium 9.6 (8.4-10.2) mg/dL AST 25 (17-59) U/L ALT 26 (4-49) U/L Alkaline Phosphatase 82 (38-126) U/L Total Protein 7.0 (6.3-8.2) g/dL Albumin 4.3 (3.5-5.0) g/dL Current Medications Generic Name Dose Route Start Last Admin Trade Name Freq PRN Reason Stop Dose Admin Sodium Chloride 1,000 mls @ 130 mls/hr 05/08/24 02:00 05/08/24 03:13 Saline 0.9% IV 130 mls/hr .[id number] [place] Administration Morphine Sulfate 4 mg 05/08/24 01:50 Morphine Sulfate 4 Mg/Ml Syringe IV Q4HR PRN Severe Pain (Scale 7 to 10) Naloxone HCl 0.2 mg 05/08/24 01:50 Naloxone 0.4 Mg/Ml 1 Ml Vial IV Q2M PRN Opioid Reversal Ondansetron HCl 4 mg 05/08/24 01:50 Ondansetron 4 Mg/2 Ml Vial IVP Q8HR PRN Nausea And Vomiting Intake and Output 05/07/24 05/08/24 05/08/24 22:59 06:59 14:59 Output Total 100 Balance -100 Output: Urine 100 Other: Weight 104.326 kg 104.326 kg 05/07/24 22:04 05/07/24 22:04
[2024-05-08] MEDS: lamoTRIgine 25 MG TAB PO SCH (17:06)
[2024-05-08] MEDS: SERTRALINE 50 MG TAB PO SCH (17:06)
[2024-05-08] MEDS: ATORVASTATIN 10 MG TAB PO SCH (21:03)
[2024-05-09 03:06] VITALS: RESP 16
[2024-05-09 07:31] VITALS: BP 113/73; PULSE 68; TEMP 97.9
[2024-05-09 10:21] LABS: Basophils # (A) 0.03 X 10*3/uL (0.00-0.10); Basophils % (A) 0.4 %; Eosinophils # (A) 0.08 X 10*3/uL (0.04-0.35); HCT 38.7 % (39.6-50.0); HGB 12.5 g/dL (13.0-17.0); Lymphocytes # (A) 2.15 X 10*3/uL (0.90-5.00); Lymphocytes % (A) 27.8 %; MCH 30.6 pg (27.0-32.0); MCHC 32.3 g/dL (32.0-37.0); MCV 94.6 FL (80.0-97.0); Mean Platelet Volume 9.4 FL (9.5-12.2); Monocytes % (A) 6.5 %; NRBC Per 100 WBC 0 X 10*3/uL (0.00-0.01); Neutrophils # (A) 4.95 X 10*3/uL (1.80-7.70); Neutrophils % (A) 63.9 %; Platelet Count 210 X 10*3/uL (140-440); RBC 4.09 X 10*6/uL (4.40-5.60); RDW 12.3 % (11.5-14.5); WBC 7.74 X 10*3/uL (4.50-10.00)
[2024-05-09 10:48] LABS: ALT 18 U/L (10-49); AST 15 U/L (14-35); Albumin 3.8 g/dL (3.8-4.9); Albumin/Globulin Ratio 1.81 Ratio (1.60-3.17); Alkaline Phosphatase 81 U/L (41-126); BUN/Creat Ratio 12.25 Ratio (12.00-20.00); Blood Urea Nitrogen 9.8 mg/dL (9.0-27.0); Calcium 8.8 mg/dL (8.7-10.3); Carbon Dioxide 19.4 mmol/L (21.6-31.8); Chloride 110 mmol/L (96-109); Globulin 2.1 g/dL (1.6-3.3); Glucose 113 mg/dL (70-110); Phosphorus 3.6 mg/dL (2.4-5.1); Sodium 142 mmol/L (135-145); Total Bilirubin <0.2 mg/dL (0.3-1.2); Total Protein 5.9 g/dL (6.2-8.2)
--- NOTE | 2024-05-09 11:35 | MR ---
EXAMINATION TYPE: MR brain wo/w con DATE OF EXAM: 05/09/2024 11:26 AM CLINICAL INDICATION: Male, 59 years old with history of seizure; COMPARISON: 05/07/2024 TECHNIQUE: Multi planar, multi sequence imaging was performed through the brain including: T1, T2, In version recovery, susceptibility weighted imaging and gradient echo imaging and Diffusion weighted im aging. The patient was then given intravenous contrast and multi planar, T1 fat-saturation images wer e obtained. IV Contrast: cc 11 cc Gadavist FINDINGS: The carreon-white junctions, ventricular system, basal cisterns appear unremarkable. Diffusion-weighted imaging shows no evidence of restricted diffusion to suggest acute/subacute infarct. Intracranial ar terial flow voids are maintained. Midline structures show no abnormality. The susceptibility weighted images do not reveal any evidence for micro-hemorrhage. After administration of gadolinium, no abnor mal enhancement is seen. The bone marrow signal is within normal limits. Paranasal sinuses and mastoid air cells: No significant paranasal sinus disease. Visualized orbits: Orbital contents are intact. IMPRESSION: No evidence of intracranial mass, acute/subacute infarct, or abnormal enhancement.
--- NOTE | 2024-05-09 12:19 | P.PN ---
Subjective HISTORY OF PRESENT ILLNESS: This is a 59 year old male with a past medical history significant for hypertension and hyperlipidemia. 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 We have been asked to see the patient in consultation for syncope. Patient examined at the bedside. Patient states he was walking his dog when he began to feel like he was going to pass out so he came inside. He states that he sat down in his chair and began to get tingling in his fingers and a lump in his throat. He reports shortness of breath but no chest pain. He reports his symptoms lasted for about 20-25 minutes and then he lost consciousness. His family reports seizure like activity following that. He does report having episodes like his every couple years. Denies smoking, alcohol, or drug use. Reports BP at the time was low in the 80s. Reports HR was in the 30-50s at that time. He states his heart rate was low in the ER in the 30s when he was vomiting. DIAGNOSTICS: - EKG reveals sinus mechanism with no signs of acute ischemia - Laboratory data: WBC 7.9. Hemoglobin 13.7. Platelet count 285. D-dimer 0.21. Sodium 138. Potassium 3.7. BUN 14. Creatinine 0.99. Troponin negative x 3. BNP less than 20. Serum alcohol less than 20. - Current home cardiac medications include lisinopril 20 mg daily and atorvastatin 10 mg at night May 09, 2024 Patient examined this morning the bedside. Patient currently denies chest pain or pressure. He denies shortness of breath. He underwent loop recorder implantation yesterday with Dr. Soto. 2D echo remains pending. PHYSICAL EXAM: VITAL SIGNS: Reviewed. GENERAL: Well-developed in no acute distress. HEENT: Head is normocephalic. Pupils are equal, round. Sclerae anicteric. Mucous membranes of the mouth are moist. Neck supple. No JVD or thyromegaly LUNGS: Respirations even and unlabored. Lungs essentially clear to auscultation bilaterally. HEART: Regular rate and rhythm. S1 and S2 heard. ABDOMEN: Soft. Nondistended. Nontender. EXTREMITIES: Normal range of motion. No clubbing or cyanosis. Peripheral pulses intact. No lower extremity edema NEUROLOGIC: Awake and alert. Oriented x 3. ASSESSMENT: Syncope, likely vasovagal syncope Status post loop recorder insertion, May 08, 2024 Reported bradycardia in ER, no telemetry tracings available in EMR/chart for review History of syncopal episodes in the past Hypertension Hyperlipidemia Obstructive sleep apnea PLAN: 2D echo pending. Continue Lipitor. Hold lisinopril as patient's blood pressures are on the lower side. Recommend outpatient stress testing Continue telemetry monitoring Patient may be discharged home today from a cardiac standpoint Patient to follow up outpatient with Dr. Soto Nurse practitioner note has been reviewed by physician. Signing provider agrees with the documented findings, assessment, and plan of care documented by PRINT PRESS OPERATOR as a scribe. Objective - Vital Signs Vital signs: Vital Signs Temp 97.9 F 05/09/24 07:30 Pulse 68 05/09/24 07:30 Resp 16 05/09/24 07:30 BP 113/73 05/09/24 07:30 Pulse Ox 97 05/09/24 08:40 FiO2 Intake & Output 05/08/24 05/09/24 05/09/24 18:59 06:59 18:59 Intake Total 240 118 Balance 240 118 Intake: Oral 240 118 Other: # Voids 1 2 - Labs CBC & Chem 7: 05/09/24 06:35 05/09/24 06:35
--- NOTE | 2024-05-09 12:47 | CA ---
Transthoracic Echo Report Name: Jairo Rolle Age: 59 Gender: M : 1965 Exam Date: 05/08/2024 15:41 Exam Location: [facility] Ht (in): 70 Wt (lb): 230 Ordering Physician: Shabnam Gardner Attending/Referring Phys: Partition Assembly Machine Operator Razia Perez RDCS Procedure CPT: Indications: Syncope Cardiac Hx: Technical Quality: Fair Contrast 1: Total Dose (mL): Contrast 2: Total Dose (mL): MEASUREMENTS (Male / Female) Normal Values 2D ECHO LV Diastolic Diameter PLAX 4.7 cm 4.2 - 5.9 / 3.9 - 5.3 cm LV Systolic Diameter PLAX 3.1 cm IVS Diastolic Thickness 1.1 cm 0.6 - 1.0 / 0.6 - 0.9 cm LVPW Diastolic Thickness 1.2 cm 0.6 - 1.0 / 0.6 - 0.9 cm LV Relative Wall Thickness 0.5 RV Internal Dim ED PLAX 4.0 cm LA Volume 37.5 cm??? 18 - 58 / 22 - 52 cm??? LA Volume Index 16.3 cm???/m??? 16 - 28 cm???/m??? M-MODE Aortic Root Diameter MM 3.6 cm LA Systolic Diameter MM 3.6 cm LA Ao Ratio MM 1.0 AV Cusp Separation MM 1.8 cm DOPPLER AV Peak Velocity 180.4 cm/s AV Peak Gradient 13.0 mmHg AV Mean Velocity 128.2 cm/s AV Mean Gradient 7.5 mmHg AV Velocity Time Integral 35.6 cm LVOT Peak Velocity 159.8 cm/s LVOT Peak Gradient 10.2 mmHg LVOT Velocity Time Integral 32.5 cm MV Area PHT 4.2 cm??? Mitral E Point Velocity 75.6 cm/s Mitral A Point Velocity 111.9 cm/s Mitral E to A Ratio 0.7 MV Deceleration Time 182.7 ms MV E' Velocity 8.3 cm/s Mitral E to MV E' Ratio 9.1 TR Peak Velocity 164.0 cm/s TR Peak Gradient 10.8 mmHg FINDINGS Left Ventricle Mildly increased left ventricular wall thickness. Left ventricular cavity size normal. Normal left ventricular systolic function with no obvious regional wall motion abnormalities. Left ventricular ejection fraction is estimated at 55-60 %. Grade 1 diastolic dysfunction. Right Ventricle Borderline right ventricular dilatation. Right ventricular systolic pressure within normal limits. Right Atrium Normal right atrial size. Left Atrium Normal left atrial size. Mitral Valve Structurally normal mitral valve. No mitral stenosis or prolapse. Trace to mild mitral regurgitation. Aortic Valve Trileaflet aortic valve. No aortic valve stenosis or regurgitation. Tricuspid Valve Structurally normal tricuspid valve. Mild tricuspid regurgitation. Pulmonic Valve Structurally normal pulmonic valve. Trace pulmonic regurgitation. Pericardium No pericardial effusion. Aorta Normal size aortic root and proximal ascending aorta. CONCLUSIONS Mildly increased left ventricular wall thickness Left ventricular ejection fraction 55-60% Trace to mild mitral regurgitation Mild tricuspid regurgitation No pericardial effusion Previewed by: Dr. Loyd Soto DO (Electronically Signed) Final Date: 09 May 2024 12:47
--- NOTE | 2024-05-09 15:54 | P.PN ---
Subjective Progress Note Date: 05/04/24 I am following up with the patient and he feels he is back to baseline. No further seizure-like events. Objective - Vital Signs Vital signs: Vital Signs Temp 97.9 F 05/09/24 07:30 Pulse 68 05/09/24 07:30 Resp 16 05/09/24 07:30 BP 113/73 05/09/24 07:30 Pulse Ox 97 05/09/24 08:40 FiO2 Intake & Output 05/08/24 05/09/24 05/09/24 18:59 06:59 18:59 Intake Total 240 236 Balance 240 236 Intake: Oral 240 236 Other: # Voids 1 2 - Exam GENERAL: The patient is lying in bed and is not in acute distress. NEUROLOGICAL: Higher mental function: The patient is awake, alert, oriented to self, place and time. Patient is following commands. No aphasia and no neglect. Cranial nerves: The pupils are round, equal and reactive to light and accommodation. Visual luna are full to confrontation throughout. Extraocular movement is intact no nystagmus is noted. Facial sensation is normal to touch throughout. The facial strength is normal throughout. Hearing is normal bilaterally to hand rub. Tongue is midline and moved [id number] without any difficulty. No dysarthria is noted. Shoulder shrug is normal bilaterally. Motor: The strength is 5 over 5 throughout. Normal tone and bulk. Cerebellum: Normal finger to nose heel to munguia bilaterally. Sensation: Sensation is normal to touch throughout. Reflexes (right/left): 2+ throughout. Plantars are downgoing bilaterally. Some of the work-up during this hospital visit consisted of: CBC with differential is unremarkable Chemistry panel is POC glucose is 147, Chloride is 108, carbon dioxide 15, and rest of chemistry panel is unremarkable. Ammonia levels 14 Plasma lactic acid 2.0 CT head is pending official report. I looked in the patient chart and there is no report. EKG is reported as sinus rhythm with first-degree AV block. Moderate intraventricular conduction delay ventricular rate 66 the QT/QTc is 443/456. MRI Brain: Reported as no evidence of intracranial mass, acute/subacute infarct or abnormal enhancement. I personally reviewed the MRI and agree. - Labs CBC & Chem 7: 05/09/24 06:35 05/09/24 06:35 Labs: Abnormal Lab Results - Last 24 Hours (Table) 05/09/24 05/09/24 Range/Units 06:35 06:35 RBC 4.09 L (4.40-5.60) X 10*6/uL Hgb 12.5 L (13.0-17.0) g/dL Hct 38.7 L (39.6-50.0) % MPV 9.4 L (9.5-12.2) [place] Chloride 110 H (96-109) mmol/L Carbon Dioxide 19.4 L (21.6-31.8) mmol/L Anion Gap 12.60 H (4.00-12.00) mmol/L Glucose 113 H (70-110) mg/dL Total Bilirubin <0.2 L (0.3-1.2) mg/dL Total Protein 5.9 L (6.2-8.2) g/dL Assessment and Plan Assessment: This is a 59-year-old gentleman who presents because of syncopal episode. He stated last night he took his dog for a walk and then he noticed having tingling in both hands and felt disoriented that he was seeing black spots 1 back home sat on the chair and he passed out and he had pain of upper extremity episode lasted for 2 minutes with postictal confusion of 30 to 40 minutes. Been having close to similar symptoms since seventh grade and he had cardiac workup in the past which was unremarkable. Syncopal episode with upper extremity shaking with postictal confusion 30 to 40 minutes is highly concerning for seizures. Similar episodes in the past and had a cardiac workup which was unremarkable. MRI Brain is unremarkable for acute/subacute stroke or abnormal enhancement. First degree AV block on EKG Underlying history of hypertension Hypercholesteremia Plan: Preliminary routine EEG is negative for seizure or discharge. Seizure precaution seizure pads Patient was in agreement of starting him on seizure medication and he excepted to be on Lamictal and I notified him about side effects of severe rash such as Gallardo-Carlos syndrome and if he does not have any significant rash to stop the medication immediately and to come to the hospital. Start him on Lamictal 25 mg daily and a slow titration and after 1 week to go up to 25 mg twice daily and after two week go up to 50mg qam and 25mg qhs and to keep going up on Lamictal 25mg each week until 100mg bid. Notify the patient per the [place] DMV because of seizures or syncopal episode to avoid driving for 6 months until no further episodes from the last event, avoid heights, but avoid swimming unassisted, avoid using heavy machinery Patient to follow-up with neurologist as an outpatient within 1 to 2 weeks Cardiology team is consulted and they placed a loop recorder yesterday Will defer the rest of the medical management to primary team and other specialist There is no further neurological work-up. Will sign off. Please reconsult if needed. Time with Patient: Less than 30
--- NOTE | 2024-05-09 20:32 | EEG ---
ELECTROENCEPHALOGRAM REPORT CLINICAL HISTORY: This is a 59-year-old gentleman with a syncopal episode, body shaking, and shaking of his extremities. The video EEG is obtained to evaluate for seizure epileptiform activity. RELEVANT MEDICATION: Lamictal. EEG TYPE: This is a routine 21-channel EEG with video using the 10/20 electrode placement system. DESCRIPTION: Wakefulness is only obtained. During awake state, the posterior-dominant rhythm consists of [id number] voltage of 9.5-10.5 hertz activity that is well modulated, well sustained. There is no physiological stage 2 sleep architecture. There is no focal slowing. Interictal and ictal are none. ACTIVATION PROCEDURE: Photic stimulation did not evoke a posterior driving response. There is no abnormality during the photic stimulation. Hyperventilation is not performed. CLINICAL INTERPRETATION: This is a normal routine EEG. There is no focal slowing, epileptiform discharge, or seizure on the EEG. A normal routine EEG does not rule out underlying epilepsy. Clinical correlation is recommended. MMODL / IJN: [id number] /
--- NOTE | 2024-05-10 15:54 | P.DS ---
Providers Date of admission: 05/08/24 01:50 Expected date of discharge: 05/09/24 Attending physician: Abebe Hilton MD Consults: 05/08/24 01:50 Consult Physician Routine Consulting Provider: Lo Sarah Consult Reason/Comments: sz?syncope Do you want consulting provider notified?: Yes Consult Physician Routine Consulting Provider: Sabiha Veliz Consult Reason/Comments: snycope Do you want consulting provider notified?: Yes Primary care physician: Abebe Hilton MD Hospital Course: Final diagnoses Syncope, etiology unclear, in a patient with history of previous syncopal episodes, reports full event monitor years ago showing tachycardia. Status post loop recorder implantation May 08, 2024 Hypertension Hyperlipidemia Anxiety, depression Morbid obesity, BMI 33 Gastroesophageal reflux disease OA Chronic back pain Hepatosteatosis Hospital course:This is a obese 59-year-old gentleman with past medical history significant for hypertension, hyperlipidemia, anxiety, depression and multiple other medical issues presented to the ER with complaints of syncope. Denies chest pain, palpitations or shortness of breath. Reports prior history of concussion since ninth grade, syncope events since seventh grade, last event approximately 2 years ago. States syncope occur sporadically, not exertional, lasting approximately 20 to 30 minutes, usually with sitting or standing. Most recent occurrence was while he was walking his dog, became diaphoretic, disoriented-denies confusion. remembers events up to passing out, denies incontinence of urine or stool. 1 to 2 weeks ago reports a headache lasting 1 to 2 days without the other symptoms, resolved. Denies nausea vomiting or diarrhea. Denies blurred vision-states his eyes are chronically bad. Vague historian. Has not seen a machine trimmer in years; reports a normal echo years ago along with event monitor revealing tachycardia. Blood pressure soft, LINDA inhibitor is on hold, receiving IV fluid hydration. EKG reporting sinus rhythm first-degree AV block, troponins negative x 3. proBNP less than 20. Labs unremarkable. Serum alcohol less than 10. Brain CT completed, results pending. Status post loop recorder implantation, yesterday. Tolerated procedure well. 2D echo pending. Neurowork-up in progress-brain MRI and EEG pending. LINDA inhibitor remains on hold as blood pressure soft. No further seizure-like activity or syncopal episodes. Denies chest pain, palpitations or shortness of breath. Denies lightheadedness, dizziness or focal deficits. Cleared by cardiology for discharge. Patient initiated on Lamictal as recommended per nephrology-"Start him on Lamictal 25 mg daily and a slow titration and after 1 week to go up to 25 mg twice daily and after two week go up to 50mg qam and 25mg qhs and to keep going up on Lamictal 25mg each week until 100mg bid." Patient has been advised per the [place] DMV because of seizures or syncopal episode to avoid driving for 6 months until no further episodes from the last event, avoid heights, but avoid swimming unassisted, avoid using heavy machinery. Patient will be discharged home today in a stable condition with guarded prognosis pe nding completion of neurowork-up, final DC recommendations and clearance per neurology. The impression and plan of care has been dictated as directed. : I performed a history and examination of this patient, discussed the same with the dictator. I agree with the dictator's note ,documented as a scribe. Any additional findings or plans will be noted. Patient Condition at Discharge: Stable Plan - Discharge Summary Discharge Rx Participant: No New Discharge Prescriptions: New lamoTRIgine [LaMICtal] See Rx Instructions .ROUTE .COMPLEX #56 tab Continue Sertraline [Zoloft] 50 mg PO DAILY Pantoprazole Sodium [Protonix] 40 mg PO DAILY PRN PRN Reason: heartburn/gerd Atorvastatin [Lipitor] 10 mg PO HS Discontinued lisinopriL [Zestril] 20 mg PO DAILY Discharge Medication List Pantoprazole Sodium [Protonix] 40 mg PO DAILY PRN 03/23/19 [History] Sertraline [Zoloft] 50 mg PO DAILY 03/23/19 [History] Atorvastatin [Lipitor] 10 mg PO HS 05/08/24 [History] lamoTRIgine [LaMICtal] See Rx Instructions .ROUTE .COMPLEX #56 tab 05/09/24 [Rx] Follow up Appointment(s)/Referral(s): Adrianna Meza MD [REFERRING] - 2 Weeks (please call for an appointment ) Abebe Hilton MD [Primary Care Provider] - 1 Week (please call for an appointment ) Loyd Soto DO [STAFF PHYSICIAN] - 2 Weeks (Office will call with appointment time and date.) Patient Instructions/Handouts: Syncope (GEN), Cardiac Loop Recorder Insertion (GEN) Activity/Diet/Wound Care/Special Instructions: Confirm cardiology follow-up appointment prior to discharge. Avoid driving for 6 months until no further episodes from the last event, avoid heights, but avoid swimming unassisted, avoid using heavy machinery Discharge Disposition: HOME SELF-CARE
== END 2024-05-09 16:52 | disposition home or self-care (01) | DRG 262 ==
LOC: EC 21:33 → 5NMEDONC 05-08 01:50 → 6NMEDSUR 05-08 12:44
PROVIDERS: ADMIT Family Medicine; ATTEND Family Medicine
PROC: 0JH632Z Insertion of Monitoring Device into Chest Subcutaneous Tissue and Fascia, Percutaneous Approach (ICD-10-PCS; principal; 2024-05-08 20:45)
DX: R55 Syncope and collapse (principal); R56.9 Unspecified convulsions; E66.01 Morbid (severe) obesity due to excess calories; Z68.33 Body mass index [BMI] 33.0-33.9, adult; E78.00 Pure hypercholesterolemia, unspecified; F32.A Depression, unspecified; F41.9 Anxiety disorder, unspecified; M54.9 Dorsalgia, unspecified; R61 Generalized hyperhidrosis; R00.1 Bradycardia, unspecified; M19.90 Unspecified osteoarthritis, unspecified site; G47.33 Obstructive sleep apnea (adult) (pediatric); G89.29 Other chronic pain; K44.9 Diaphragmatic hernia without obstruction or gangrene; I10 Essential (primary) hypertension; I44.0 Atrioventricular block, first degree; K21.9 Gastro-esophageal reflux disease without esophagitis; K76.0 Fatty (change of) liver, not elsewhere classified; Z79.899 Other long term (current) drug therapy; Z87.820 Personal history of traumatic brain injury
CPT/HCPCS: 96361; 96374; 99291

== ENCOUNTER → 2024-09-07 | Outpatient (CLI) | payer BC ==
[2024-09-07 16:08] VITALS: BP 134/87; PULSE 72; RESP 12; TEMP 97.8
--- NOTE | 2024-09-07 17:39 | P.SLEEP ---
History of Present Illness DATE: 09/07/2024 CONSULTATION/NEW PATIENT EVALUATION HISTORY OF PRESENT ILLNESS/SLEEP-WAKE EVALUATION: 59-year-old male had been evaluated in the sleep center for obstructive sleep apnea hypopnea syndrome. Patient have been diagnosed with sleep apnea 4 years ago in another institution. Patient continued to use his CPAP equipment every night. Since starting using CPAP equipment patient increased weight on 12 pounds. Recently he developed snoring while using CPAP. I checked CPAP unit. Range of the pressure 5-15 with average pressure 8.5 cm of water. Usage is 100% of nights. Average usage 6.6 hours per night. Leak increased to 43 L/min. Apnea hypopnea index is in normal range 1.7. SLEEP SCHEDULE: Usually sleep schedule from 10:30 PM to 6 AM on weekdays and from 11 PM to 6 AM on weekend. FALLING ASLEEP: Sometimes patient has difficulties with falling asleep, although no TV in bedroom. DURING SLEEP: Patient usually sleeps on the back position with snoring even while using CPAP. No history of hypnogogical hallucinations, sleep paralysis, or cataplexy. DURING THE DAY/WAKE STATE: Patient may feel some sleepiness during the day. [place] sleepiness scale is increased to 12. Patient may take 1 nap at afternoon time. PAST MEDICAL HISTORY: Hypertension, acid reflux, hyperlipidemia. PAST SURGICAL HISTORY: Lymph node removed for benign reason, hernia repair. MEDICATIONS: Please see below. SOCIAL HISTORY: Please see below. FAMILY HISTORY: Please see below. REVIEW OF SYSTEMS: Snoring while using CPAP. No fevers. No double vision. No recent chest pain. No shortness of breath. No abdominal pain. No bleeding episodes. No blood in urine. No seizure episodes. PHYSICAL EXAMINATION: GENERAL: A pleasant patient without any distress. VITAL SIGNS: Please see below, weight 242 pounds, BMI 35.8. HEENT: PERRLA, EOMI. Evaluation of oropharynx showed tongue protrudes midline, low position of soft palate Mallampati 4. NECK: Supple. No JVD. Thyroid is not palpable. 18.5 inches in circumference. LUNGS: Clear to percussion and to auscultation. Good air exchange. No wheezing or rhonchi. HEART: S1, S2 regular. No murmurs, gallops or rubs. ABDOMEN: Soft and nontender. Bowel sounds are present. No organomegaly appreciated. EXTREMITIES: No clubbing or cyanosis. NEON ELECTRICIAN: Awake, alert, and oriented x3. Cranial nerves 2 to 7 intact. There is no fasciculation or atrophy noted. No focal deficits observed. ASSESSMENT: 1. Obstructive sleep apnea hypopnea syndrome diagnosed in another institution 4 years ago. Patient continued to use his CPAP equipment every night for the whole night. Reading from CPAP showed normal apnea-hypopnea index 1.7. Patient may have snoring, but has significant leak from the mask 43 L/min. Extremely low position of soft palate Mallampati 4, wide neck 18.5 inches in circumference. Obstructive sleep apnea hypopnea syndrome. 2. Mild obesity, BMI 35.8. 3. Hypertension. 4. Hyperlipidemia. 5 acid reflux. 6 . Nasal septum deviation. 7. Status post surgical treatment for hiatal hernia. 8. Status post lymph node removed for benign reasons. PLAN: 1. Patient will continue to use CPAP equipment every night for the whole night. 2. I slightly increased range of the pressure in CPAP unit to 5-16 cm of water. 3. Preferable position during sleep on the side. 4. No driving if patient feels any sleepiness. Patient is aware of civil and criminal liability for unsafe driving. 5. Sleep hygiene with regular sleep time for at least 7.5-8 h ours. 6. Watching and losing weight. 7. Prescription for all CPAP supplies including mask of choice, heated tube, filters. 8. We will get results of previous sleep studies. 9. Follow-up visit in 8 months or earlier if patient has any problems. Thank you very much for referring this patient for consultation. Sincerely, Cristhian Sarmiento MD, PhD, FAASM. Diplomat of [place] [employer], Sleep Medicine Board by [place] [employer] [place] [employer] [facility] [place] cc: Abebe Hilton MD Past Medical History Past Medical History: GERD/Reflux, Hyperlipidemia, Hypertension, Osteoarthritis (OA), Sleep Apnea/CPAP/BIPAP, Syncope Additional Past Medical History / Comment(s): chronic back pain, non alcoholic fatty liver, sporadic episodes of passing out since age of 13 per pt., HIATAL HERNIA History of Any Multi-Drug Resistant Organisms: None Reported Past Surgical History: Hernia Repair Additional Past Surgical History / Comment(s): lymph node removed, colonoscopy, ventral hernia repaired Past Anesthesia/Blood Transfusion Reactions: Motion Sickness Past Psychological History: Anxiety, Depression Smoking Status: Never smoker Past Alcohol Use History: None Reported Past Drug Use History: None Reported - Past Family History Mother Family Medical History: No Reported History Medications and Allergies Home Medications Medication Instructions Recorded Confirmed Type Pantoprazole Sodium [Protonix] 40 mg PO DAILY PRN 03/23/19 09/07/24 History Sertraline [Zoloft] 50 mg PO DAILY 03/23/19 09/07/24 History Atorvastatin [Lipitor] 10 mg PO HS 05/08/24 09/07/24 History lisinopriL [Zestril] 20 mg PO DAILY 09/07/24 09/07/24 History Allergies Allergy/AdvReac Type Severity Reaction Status Date / Time No Known Allergies Allergy Verified 05/08/24 10:08 Physical Exam Vitals: Vital Signs Temp Pulse Resp BP Pulse Ox 09/07/24 16:07 97.8 F 72 12 134/87 97 Intake and Output 09/07/24 09/07/24 09/07/24 06:59 14:59 22:59 Other: Weight 109.769 kg Sleep Note - Sleep Data ESS Total: 12 - Sleep Note Sleep Note: Temperature: 97.8 F Pulse Rate: 72 Respiratory Rate: 12 Blood Pressure: 134/87 SpO2: 97 Height: 5 ft 9 in Weight: 109.769 kg BMI: Neck Circumference: 18.5
== END ==
LOC: 3 N SLEEP 14:55
PROVIDERS: ATTEND Internal Medicine
DX: G47.33 Obstructive sleep apnea (adult) (pediatric) (principal); E66.9 Obesity, unspecified; I10 Essential (primary) hypertension; E78.5 Hyperlipidemia, unspecified; K21.9 Gastro-esophageal reflux disease without esophagitis; J34.2 Deviated nasal septum; Z98.890 Other specified postprocedural states; Z68.35 Body mass index [BMI] 35.0-35.9, adult; Z99.89 Dependence on other enabling machines and devices; Z79.899 Other long term (current) drug therapy
CPT/HCPCS: 99211